=== PATIENT | female | born 1945 | race Caucasian/White ===

== ENCOUNTER 2020-01-22 14:23 | Inpatient (IN) ==
[2020-01-22] MEDS ORDERED: ONDANSETRON 4 MG/2 ML VIAL IV ONE (14:47)
[2020-01-22] MEDS ORDERED: 0.9 % SODIUM CHLORIDE 1,000 ML IV ONE (14:47)
--- NOTE | 2020-01-22 14:53 | Emergency Department Note ---
Weakness HPI General Chief complaint: Weakness Stated complaint: HASN'T BEEN ABLE TO EAT OR DINK OR GET OUT OF BED Time Seen by Provider: 01/22/20 14:41 Source: patient Mode of arrival: ambulatory Limitations: no limitations History of Present Illness HPI Narrative: Narrative: Reports 1 week history of initiation of a cough and a fever. She has been vomiting and had diarrhea. She vomited about 3 times today and may be the same yesterday as well as diarrhea about the same on both days although she cannot remember more than this. reported that she had been a little bit confused. No runny nose or sore throat. She has had a little bit of chest discomfort. She has felt short of breath. Beginning a week ago also did have some runny nose and sore throat. She has had some lower abdominal discomforts. These have been in general, fairly consistent. They have been moderate in severity. She cannot characterize it more than that. She denies dysuria or frequency specifically. She has felt weak and lightheaded. Has some headache present currently. Related Data Home Medications Medication Instructions Recorded Confirmed calcium carbonate 500 mg calcium 500 mg PO BID cap 11/02/17 11/13/19 (1,250 mg) capsule cholecalciferol (vitamin D3) 50 2,000 unit PO QDAY 11/02/17 11/13/19 mcg (2,000 unit) capsule memantine 5 mg tablet 5 mg PO BID 04/08/19 11/13/19 Previous Rx's Medication Instructions Recorded aspirin 81 mg tablet,delayed 81 mg PO QDAY #90 tab 01/05/15 release donepezil 10 mg tablet 10 mg PO QDAY #60 tab 06/01/18 folic acid 1 mg tablet See Rx Instructions .ROUTE 11/12/19 .COMPLEX #30 tab Allergies Allergy/AdvReac Type Severity Reaction Status Date / Time No Known Drug Allergies Allergy Verified 11/13/19 16:03 Review of Systems ROS ROS Narrative: Narrative: No blurry vision or double vision. No urinary frequency or dysuria. No back pain No rashes PFSH Narrative Patient History Narrative: Narrative: Medical/Surgical/Family History All Active Problems (Updated 01/22/20 @ 19:15 by Sloan Woo DO) Diarrhea (Acute) GI bleeding (Acute) Pneumonia due to COVID-19 virus (Acute) Hypoxia (Acute) Dementia (Acute) Chest pain (Acute) Acute anxiety (Acute) TIA (transient ischemic attack) (Acute) Upper respiratory infection (Acute) Osteoporosis (Acute) Elevated glucose (Acute) Microscopic hematuria (Acute) Hypovitaminosis D (Chronic) Hyperlipidemia (Acute) H/O colonoscopy (Chronic 10/29/13) Hyperplastic colon polyp (Chronic 10/29/13) Homocysteinemia (Acute) H/O: hysterectomy (Acute) Arthritis (Chronic) Anxiety (Chronic) S/P arthroscopic surgery of right knee (Chronic) S/P arthroscopic surgery of left knee (Chronic) Hx of appendectomy (Chronic) Pulmonary embolism (Chronic) Diverticulosis (Chronic) Depressive disorder (Chronic) Benign neoplasm of colon (Chronic) Medical History (Updated 01/22/20 @ 19:15 by Sloan Woo DO) Acute anxiety (Acute) Anxiety (Chronic) Arthritis (Chronic) Benign neoplasm of colon (Chronic) Chest pain (Acute) Depressive disorder (Chronic) Diverticulosis (Chronic) Homocysteinemia (Acute) Hyperplastic colon polyp (Chronic 10/29/13) Colonoscopy Pulmonary embolism (Chronic) R. lung TIA (transient ischemic attack) (Acute) Upper respiratory infection (Acute) Surgical History H/O colonoscopy (Chronic 10/29/13) 10/29/13 Scar H/O: hysterectomy (Acute) Hx of appendectomy (Chronic) S/P arthroscopic surgery of left knee (Chronic) S/P arthroscopic surgery of right knee (Chronic) Family History Father, at age 85 Mother, at age 86 Social History Smoking Status: Former smoker Alcohol Intake Frequency: does not drink Substance Use: does not use Exam Narrative Narrative: Narrative: General Limitations: no limitations General appearance: Present alert, in no apparent distress, nontoxic and other (Requiring oxygen. Is on 4 L/min, nasal cannula) Head Head: Present atraumatic and normocephalic Eye Eye: Present normal appearance, PERRL and EOMI ENT ENT: Present normal oropharynx and mucous membranes moist Neck Neck: Present trachea midline; Absent lymphadenopathy and thyromegaly Chest Chest: Present symmetric chest wall rise Respiratory Respiratory: Present normal lung sounds bilaterally; Absent respiratory distress, rales/crackles, wheezes, stridor, accessory muscle use and prolonged expiratory phase Cardiovascular Cardiovascular: Present regular rate and normal rhythm; Absent systolic murmur and diastolic murmur Adbominal Abdominal: Present soft; Absent distention, tenderness, guarding, rebound, rigidity, organomegaly and mass Extremities Extremities: Absent pedal edema, pretibial edema, calf tenderness and cyanosis Back Back: Absent CVA tenderness (R) and CVA tenderness (L) Neurological Neurological: Present alert and other (Seems to be confused at times and not good in her memory over common and regular things. Unable to give some general information.) Psychiatric Psychiatric: Present normal affect, polite and pleasant; Absent depressed, agitated, anxious and poor eye contact Skin Skin: Present warm (WNL) and dry; Absent cyanosis and pallor Course Vital Signs Vital signs: Vital Signs Temperature 99.9 F H 01/22/20 14:24 Pulse Rate 83 01/22/20 14:24 Respiratory Rate 14 01/22/20 14:24 Blood Pressure 157/124 01/22/20 14:24 Pulse Oximetry (%) 89 L 01/22/20 14:24 Temperature 99.7 F H 01/22/20 18:54 Pulse Rate 68 01/22/20 18:54 Respiratory Rate 14 01/22/20 18:54 Blood Pressure 124/83 01/22/20 18:54 Pulse Oximetry (%) 92 01/22/20 18:54 MDM MDM Narrative Medical decision making narrative: Narrative: 2:49 PM - EKG demonstrates left bundle branch block with probable left atrial enlargement although there is enough baseline artifact that makes this di fficult. Rate 80 bpm. 3:00 PM approximately - interviewed and examined. Is requiring oxygen. I t urned her down to 0 and she went down to 79 and 80% sometimes a little higher. With 2 L she was still running 88-90 and so was bumped up to 3 L. When I had gone into the room she was at 4 L. She seemed a little bit confused but overall seem to be a fair historian. 4:00 PM - my review of her chest x-ray demonstrates possible small pneumonia and patchy infiltrate bilateral bases. Suspect Covid giving her above symptoms. Rapid test ordered. She is hypoxic. 4:15 PM - nursing staff reports that patient got up to go to the commode and pulled out all of her lines and monitors except for her Carlos cath which is in place. Also was partially incontinent of stool at least onto her gown etc. S taff will help her to get cleaned up and get her restarted with a new IV. Labs have come back with * normal white count, H&H. * Electrolytes unremarkable. * BUN and creatinine are actually unremarkable at 19 and 1.1. * Liver function tests are unremarkable. * TSH is normal at 1.36. * Still pending is a troponin and procalcitonin. 4:38 PM - spoke with patient's , Wilton Haq, who reports that her symptoms actually began 3 days ago and included decreased appetite, weakness, staying in bed etc. Sometimes she gets a little bit hard to convince to eat or drink. She gets mad easily. She only sat up briefly yesterday and then last night was coughing quite bad. He got up after hurts noises and she had been some in bowels. She was laying on the floor in the dining room. After some difficulty was able to get her up and then back into bed and get her cleaned up. He reports that she has been drinking only about a can of Pepsi daily. She did have a looser bowel yesterday and then today one episode of diarrhea prior to coming. He has not been able to check her temperature because they do not have a thermometer. He has not seen runny nose or sore throat. She has had cough onset about 4 days ago with some congestion. Believes that triggered her living will says DO NOT RESUSCITATE. They [address] in [address] She has not had exposures to Covid that he knows of. She has not been out and about since the sixth and he has no symptoms. He has had limited Leticia in the community as well. 5:12 PM - spoke with hospitalist, Dr. Stu Coyle. He is willing to accept patient if not full code or if stable; or comfort measures primarily only if she worsens. He is willing to take her if she remains stable for an hour and a half additional. 5:17 PM - I spoke again with patient's , Wilton Haq. He reports that they are legally since 2011. He is not found specifically the living will. He thinks that she would want to be intubated. I discussed with him carlos barbosa if she got worse. He is wishing that this be done. 5:25 PM - Will order ABG and monitor for an additional hour and a half, i.e. until approximately 7 PM. Will give dexamethasone 6 and remdesivir 200. 6:20 PM - treat ABG demonstrates mild respiratory alkalosis with a pH of 7.49, PCO2 31, PO2 66, base excess 0.8 and 94% on 3 L. Bicarb is 23.6. 7:03 PM - spoke with Dr. Stu Coyle, hospitalist who will see patient and admit and assume care. Lab Data Result diagrams: 01/22/20 15:01 01/22/20 15:01 Labs: Lab Results 01/22/20 01/22/20 01/22/20 Range/Units 13:01 15: 15:01 WBC 7.8 (4.5-11.0) K/mcL RBC 4.14 (4.00-5.20) M/mcL Hgb 12.5 (12.0-15.0) g/dL Hct 36.7 (36.0-48.0) % MCV 88.6 (80.0-100.0) fL MCH 30.2 (26.0-34.0) pg MCHC 34.1 (31.0-36.0) g/dL RDW 12.6 (11.5-14.5) % Plt Count 290 (140-440) K/mcL MPV 10.0 (7.4-10.4) fL Neut % (Auto) 77.4 (38.0-78.0) % Lymph % (Auto) 16.0 (15.0-49.0) % [place] % (Auto) 4.9 (1.0-12.0) % Eos % (Auto) 1.4 (0.0-7.0) % Baso % (Auto) 0.3 (0.0-2.0) % Lymph # (Auto) 1.25 L (1.50-4.80) K/mcL [place] # (Auto) 0.38 (0.10-0.90) K/mcL Eos # (Auto) 0.11 (0.00-0.70) K/mcL Baso # (Auto) 0.02 (0.00-0.20) K/mcL Absolute Neutrophils 6.05 (1.80-8.00) K/mcL Sodium 136 (133-145) mmol/L Potassium 3.6 (3.3-5.1) mmol/L Chloride 99 (96-108) mmol/L Carbon Dioxide 23 (22-30) mmol/L Anion Gap 14.0 (8.0-16.0) BUN 19 (8-23) mg/dL Creatinine 1.1 (0.6-1.1) mg/dL GFR Calculation 49 Glucose 106 H (70-105) mg/dL Calcium 8.4 L (8.6-10.4) mg/dL Magnesium 2.2 (1.6-2.5) mg/dL Total Bilirubin 0.6 (0.1-1.0) mg/dL AST 33 H (<32) U/L ALT 14 (<40) U/L Alkaline Phosphatase 70 (39-117) U/L Troponin T (<0.03) ng/mL Total Protein 7.3 (5.9-8.4) gm/dL Albumin 3.3 (3.2-5.2) gm/dL Globulin 4.0 H (2.2-3.7) gm/dL Albumin/Globulin Ratio 0.8 L (1.0-2.3) Procalcitonin 1.30 H (<0.10) ng/mL TSH 1.36 (0.27-5.01) uIU/mL Urine Color Urine Appearance (Clear) Urine pH (5.0-9.0) Ur Specific [place] (1.000-1.035) Urine Protein (Negative) mg/dL Urine Glucose (UA) (Negative) mg/dL Urine Ketones (Negative) mg/dL Urine Occult Blood (Negative) mg/dL Urine Nitrate (Negative) Urine Bilirubin (Negative) mg/dL Urine Urobilinogen mg/dL Ur Leukocyte Esterase (Negative) /ug Urine RBC (0-1) /hpf Urine WBC (0-4) /hpf Ur Squamous Epith Cells (0-4) /hpf Urine Bacteria (0) /hpf Hyaline Casts (0-2) /lph Urine Mucus (None) /hpf Ur Culture Indicated? Acetaminophen ug/mL SARS-CoV-2 (PCR) (Negative) 01/22/20 01/22/20 01/22/20 Range/Units 15:01 15:01 16:14 WBC (4.5-11.0) K/mcL RBC (4.00-5.20) M/mcL Hgb (12.0-15.0) g/dL Hct (36.0-48.0) % MCV (80.0-100.0) fL MCH (26.0-34.0) pg MCHC (31.0-36.0) g/dL RDW (11.5-14.5) % Plt Count (140-440) K/mcL MPV (7.4-10.4) fL Neut % (Auto) (38.0-78.0) % Lymph % (Auto) (15.0-49.0) % [place] % (Auto) (1.0-12.0) % Eos % (Auto) (0.0-7.0) % Baso % (Auto) (0.0-2.0) % Lymph # (Auto) (1.50-4.80) K/mcL [place] # (Auto) (0.10-0.90) K/mcL Eos # (Auto) (0.00-0.70) K/mcL Baso # (Auto) (0.00-0.20) K/mcL Absolute Neutrophils (1.80-8.00) K/mcL Sodium (133-145) mmol/L Potassium (3.3-5.1) mmol/L Chloride (96-108) mmol/L Carbon Dioxide (22-30) mmol/L Anion Gap (8.0-16.0) BUN (8-23) mg/dL Creatinine (0.6-1.1) mg/dL GFR Calculation Glucose (70-105) mg/dL Calcium (8.6-10.4) mg/dL Magnesium (1.6-2.5) mg/dL Total Bilirubin (0.1-1.0) mg/dL AST (<32) U/L ALT (<40) U/L Alkaline Phosphatase (39-117) U/L Troponin T < 0.01 (<0.03) ng/mL Total Protein (5.9-8.4) gm/dL Albumin (3.2-5.2) gm/dL Globulin (2.2-3.7) gm/dL Albumin/Globulin Ratio (1.0-2.3) Procalcitonin (<0.10) ng/mL TSH (0.27-5.01) uIU/mL Urine Color Urine Appearance (Clear) Urine pH (5.0-9.0) Ur Specific [place] (1.000-1.035) Urine Protein (Negative) mg/dL Urine Glucose (UA) (Negative) mg/dL Urine Ketones (Negative) mg/dL Urine Occult Blood (Negative) mg/dL Urine Nitrate (Negative) Urine Bilirubin (Negative) mg/dL Urine Urobilinogen mg/dL Ur Leukocyte Esterase (Negative) /ug Urine RBC (0-1) /hpf Urine WBC (0-4) /hpf Ur Squamous Epith Cells (0-4) /hpf Urine Bacteria (0) /hpf Hyaline Casts (0-2) /lph Urine Mucus (None) /hpf Ur Culture Indicated? Acetaminophen < 5.0 ug/mL SARS-CoV-2 (PCR) Positive A (Negative) 01/22/20 Range/Units 16:14 WBC (4.5-11.0) K/mcL RBC (4.00-5.20) M/mcL Hgb (12.0-15.0) g/dL Hct (36.0-48.0) % MCV (80.0-100.0) fL MCH (26.0-34.0) pg MCHC (31.0-36.0) g/dL RDW (11.5-14.5) % Plt Count (140-440) K/mcL MPV (7.4-10.4) fL Neut % (Auto) (38.0-78.0) % Lymph % (Auto) (15.0-49.0) % [place] % (Auto) (1.0-12.0) % Eos % (Auto) (0.0-7.0) % Baso % (Auto) (0.0-2.0) % Lymph # (Auto) (1.50-4.80) K/mcL [place] # (Auto) (0.10-0.90) K/mcL Eos # (Auto) (0.00-0.70) K/mcL Baso # (Auto) (0.00-0.20) K/mcL Absolute Neutrophils (1.80-8.00) K/mcL Sodium (133-145) mmol/L Potassium (3.3-5.1) mmol/L Chloride (96-108) mmol/L Carbon Dioxide (22-30) mmol/L Anion Gap (8.0-16.0) BUN (8-23) mg/dL Creatinine (0.6-1.1) mg/dL GFR Calculation Glucose (70-105) mg/dL Calcium (8.6-10.4) mg/dL Magnesium (1.6-2.5) mg/dL Total Bilirubin (0.1-1.0) mg/dL AST (<32) U/L ALT (<40) U/L Alkaline Phosphatase (39-117) U/L Troponin T (<0.03) ng/mL Total Protein (5.9-8.4) gm/dL Albumin (3.2-5.2) gm/dL Globulin (2.2-3.7) gm/dL Albumin/Globulin Ratio (1.0-2.3) Procalcitonin (<0.10) ng/mL TSH (0.27-5.01) uIU/mL Urine Color Yellow Urine Appearance Hazy A (Clear) Urine pH 6.0 (5.0-9.0) Ur Specific [place] 1.026 (1.000-1.035) Urine Protein 100 A (Negative) mg/dL Urine Glucose (UA) Negative (Negative) mg/dL Urine Ketones Negative (Negative) mg/dL Urine Occult Blood 0.20 (Negative) mg/dL Urine Nitrate Negative (Negative) Urine Bilirubin Negative (Negative) mg/dL Urine Urobilinogen 2.0 A mg/dL Ur Leukocyte Esterase Negative (Negative) /ug Urine RBC 20 H (0-1) /hpf Urine WBC 12 H (0-4) /hpf Ur Squamous Epith Cells < 1 (0-4) /hpf Urine Bacteria None (0) /hpf Hyaline Casts 28 H (0-2) /lph Urine Mucus Many A (None) /hpf Ur Culture Indicated? yes Acetaminophen ug/mL SARS-CoV-2 (PCR) (Negative) Discharge Plan Patient/Caregiver Discharge Instructions Pt seen by SERVICES REP/PA only: No Clinical Impression: Pneumonia due to COVID-19 virus, Hypoxia Patient Disposition: Xfer As Inpt ([facility]) Follow up with: Omer Shepherd MD, FAAFP [Primary Care Provider] - Prescriptions: No Action folic acid 1 mg tablet See Rx Instructions .ROUTE .COMPLEX Qty: 30 RF: 4 aspirin 81 mg tablet,delayed release (DR/EC) 81 mg PO QDAY Qty: 90 RF: 0 calcium carbonate [Calci-Mix] 500 mg calcium (1,250 mg) capsule 500 mg PO BID RF: 0 cholecalciferol (vitamin D3) 2,000 unit capsule 2,000 unit PO QDAY RF: 0 donepezil [Aricept] 10 mg tablet 10 mg PO QDAY Qty: 60 RF: 4 memantine [Namenda] 5 mg tablet 5 mg PO BID RF: 0
[2020-01-22] MEDS ORDERED: ACETAMINOPHEN 325 MG TABLET PO ONE (15:15)
[2020-01-22] MEDS ORDERED: cefTRIAXone 1 GM VIAL IV ONE (15:19)
[2020-01-22] MEDS ORDERED: AZITHROMYCIN 500 MG in DEXTROSE 5% IN WATER 250 ML IV ONE (15:21)
[2020-01-22 15:32] LABS: Basophils # (Auto) 0.02 K/mcL (0.00-0.20); Basophils % (Auto) 0.3 % (0.0-2.0); Eosinophils # (Auto) 0.11 K/mcL (0.00-0.70); Eosinophils % (Auto) 1.4 % (0.0-7.0); Hematocrit 36.7 % (36.0-48.0); Hemoglobin 12.5 g/dL (12.0-15.0); Lymphocytes # (Auto) 1.25 K/mcL (1.50-4.80); Mean Cell Volume 88.6 fL (80.0-100.0); Mean Corpuscular HGB Conc 34.1 g/dL (31.0-36.0); Monocytes # (Auto) 0.38 K/mcL (0.10-0.90); Monocytes % (Auto) 4.9 % (1.0-12.0); Neutrophils % (Auto) 77.4 % (38.0-78.0); Platelet Count 290 K/mcL (140-440); RBC 4.14 M/mcL (4.00-5.20); Red Cell Distribution Width 12.6 % (11.5-14.5); WBC 7.8 K/mcL (4.5-11.0)
[2020-01-22 16:08] LABS: ALT/SGPT 14 U/L (<40); AST/SGOT 33 U/L (<32); Albumin 3.3 gm/dL (3.2-5.2); Albumin/Globulin Ratio 0.8 (1.0-2.3); Alkaline Phosphatase 70 U/L (39-117); Bilirubin,Total 0.6 mg/dL (0.1-1.0); Blood Urea Nitrogen 19 mg/dL (8-23); Calcium 8.4 mg/dL (8.6-10.4); Carbon Dioxide 23 mmol/L (22-30); Chloride 99 mmol/L (96-108); Glomerular Filtration Rate 49; Glucose 106 mg/dL (70-105); Thyroid Stimulating Hormone 1.36 uIU/mL (0.27-5.01)
--- NOTE | 2020-01-22 16:20 | XRay Report ---
CLINICAL INFORMATION: SOB COMPARISON: 03/13/2017 FINDINGS: Mild cardiomegaly is unchanged. Mediastinum and pulmonary vasculature are unremarkable. Moderate right upper lung and left lower lobe infiltrates have developed. Underlying chronic bronchitis appreciated. No effusions IMPRESSION: Moderate right upper and left lower lung infiltrates Interpreted and Authenticated by: Porfirio Argueta 01/22/20
[2020-01-22 16:44] LABS: Appearance,Urine HAZY (Clear); Bilirubin,Urine Negative (Negative); Color,Urine Yellow; Culture Indicated,Urine yes; Glucose,Urine (UA) Negative (Negative); Ketones,Urine Negative (Negative); Leukocyte Esterase,Urine Negative /ug (Negative); Mucus,Urine MANY /hpf; Nitrate,Urine Negative (Negative); Protein,Urine 100 mg/dL (Negative); Specific Gravity,Urine 1.026 (1.000-1.035); Urine Hyaline Cast 28 /lph (0-2); Urine RBC 20 /hpf (0-1); Urine Squamous Epithelial Cell < 1 /hpf (0-4); Urine WBC 12 /hpf (0-4)
[2020-01-22] MEDS ORDERED: DEXAMETHASONE 10 MG/ML VIAL IV ONE (17:26)
[2020-01-22] MEDS ORDERED: REMDESIVIR 200 MG in 0.9 % SODIUM CHLORIDE 250 ML IV ONE (17:26)
--- NOTE | 2020-01-22 19:25 | Internal Med History&Physical ---
HPI History of Present Illness Patient information: Note initiated : 01/22/20 at 7:23 pm Service Date, if different from initiated Date: [] Patient: Christy Atkins a 74 y/o F admitted on for Hasn't Been Able To Eat/Drink/Get Out Of Bed. Chief Complaint: [] History of present illness: Ms. Gianluca Payan is a 74 year old F 74-year-old female presents the ED with generalized weakness decreased appetite nausea vomiting diarrhea cough and fever some mild confusion on top of underlying Alzheimer's patient. History is obtained from the chart and per the chart due to patient's underlying dementia. In the ED she is evaluated found to be hypoxic with a fever. She had elevated procalcitonin and chest x-ray showed bilateral infiltrates. Covid test was positive. Review of Systems: Pertinent positives as above. Denies headache/fever/chills//chest or abdominal pain Remaining 10 point review of system reviewed negative. PFSH PFSH All Active Problems (Updated 01/22/20 @ 19:15 by Sloan Woo DO) Diarrhea (Acute) GI bleeding (Acute) Pneumonia due to COVID-19 virus (Acute) Hypoxia (Acute) Dementia (Acute) Chest pain (Acute) Acute anxiety (Acute) TIA (transient ischemic attack) (Acute) Upper respiratory infection (Acute) Osteoporosis (Acute) Elevated glucose (Acute) Microscopic hematuria (Acute) Hypovitaminosis D (Chronic) Hyperlipidemia (Acute) H/O colonoscopy (Chronic 10/29/13) Hyperplastic colon polyp (Chronic 10/29/13) Homocysteinemia (Acute) H/O: hysterectomy (Acute) Arthritis (Chronic) Anxiety (Chronic) S/P arthroscopic surgery of right knee (Chronic) S/P arthroscopic surgery of left knee (Chronic) Hx of appendectomy (Chronic) Pulmonary embolism (Chronic) Diverticulosis (Chronic) Depressive disorder (Chronic) Benign neoplasm of colon (Chronic) Medical History (Updated 01/22/20 @ 19:15 by Sloan Woo DO) Acute anxiety (Acute) Anxiety (Chronic) Arthritis (Chronic) Benign neoplasm of colon (Chronic) Chest pain (Acute) Depressive disorder (Chronic) Diverticulosis (Chronic) Homocysteinemia (Acute) Hyperplastic colon polyp (Chronic 10/29/13) Colonoscopy Pulmonary embolism (Chronic) R. lung TIA (transient ischemic attack) (Acute) Upper respiratory infection (Acute) Surgical History H/O colonoscopy (Chronic 10/29/13) 10/29/13 Scar H/O: hysterectomy (Acute) Hx of appendectomy (Chronic) S/P arthroscopic surgery of left knee (Chronic) S/P arthroscopic surgery of right knee (Chronic) Family History Mother , at age 86 Alzheimer's disease Father , at age 85 Atherosclerosis of coronary artery Social History marital status: education level: high school occupational status: retired other: Children-1 Grandchildren-2 smoking status: Former smoker quit date: 03/13/99 pack-years: 15 alcohol intake frequency: does not drink substance use type: does not use MEDS/ALLERGIES Home Medications and Allergies Home Medications Medication Instructions Recorded Confirmed Type aspirin 81 mg tablet,delayed 81 mg PO QDAY #90 tab 01/05/15 01/22/20 Rx release donepezil 10 mg tablet 10 mg PO QDAY #60 tab 06/01/18 01/22/20 Rx memantine 5 mg tablet 5 mg PO BID 04/08/19 01/22/20 History folic acid 1 mg tablet See Rx Instructions .ROUTE 11/12/19 01/22/20 Rx .COMPLEX #30 tab Allergies Allergy/AdvReac Type Severity Reaction Status Date / Time No Known Drug Allergies Allergy Verified 11/13/19 16:03 EXAM Constitutional Vitals: Temp Pulse Resp BP Pulse Ox 99.7 F H 68 14 124/83 92 01/22/20 18:54 01/22/20 18:54 01/22/20 18:54 01/22/20 18:54 01/22/20 18:54 Exam: General: Alert, Awake, No acute Distress Eyes/N/T: EOMI, PERRL, dry MM Head/Neck: neck supple, normocephalic atraumatic CV: RRR, No murmurs, normal s1/s2 Pulm: b/l mild rales/rhonchi, no wheezing Abd: soft, nontender, +BS x4 Ext: no clubbing/cyanosis/edema Neuro: Alert, no focal deficits, moves all extremities, CN 2-12 grossly intact, symmetrical strength b/l upper/lower, sensations intact b/l upper/lower Skin: warm/dry DATA Data Completed and Pending Labs: Labs from last 24 hours 01/22/20 01/22/20 01/22/20 16:14 16:14 15:01 WBC RBC Hgb Hct MCV MCH MCHC RDW Plt Count MPV Neut % (Auto) Lymph % (Auto) [place] % (Auto) Eos % (Auto) Baso % (Auto) Lymph # (Auto) [place] # (Auto) Eos # (Auto) Baso # (Auto) Absolute Neutrophils PT INR Sodium Potassium Chloride Carbon Dioxide Anion Gap BUN Creatinine GFR Calculation Glucose Calcium Magnesium Ferritin Total Bilirubin AST ALT Alkaline Phosphatase Total Creatine Kinase Troponin T C-Reactive Protein Total Protein Albumin Globulin Albumin/Globulin Ratio Procalcitonin TSH Urine Color Yellow Urine Appearance Hazy A Urine pH 6.0 Ur Specific [place] 1.026 Urine Protein 100 A Urine Glucose (UA) Negative Urine Ketones Negative Urine Occult Blood 0.20 Urine Nitrate Negative Urine Bilirubin Negative Urine Urobilinogen 2.0 A Ur Leukocyte Esterase Negative Urine RBC 20 H Urine WBC 12 H Ur Squamous Epith Cells < 1 Urine Bacteria None Hyaline Casts 28 H Urine Mucus Many A Ur Culture Indicated? yes Acetaminophen < 5.0 SARS-CoV-2 (PCR) Positive A 01/22/20 01/22/20 01/22/20 15:01 15:01 15:01 WBC 7.8 RBC 4.14 Hgb 12.5 Hct 36.7 MCV 88.6 MCH 30.2 MCHC 34.1 RDW 12.6 Plt Count 290 MPV 10.0 Neut % (Auto) 77.4 Lymph % (Auto) 16.0 [place] % (Auto) 4.9 Eos % (Auto) 1.4 Baso % (Auto) 0.3 Lymph # (Auto) 1.25 L [place] # (Auto) 0.38 Eos # (Auto) 0.11 Baso # (Auto) 0.02 Absolute Neutrophils 6.05 PT INR Sodium 136 Potassium 3.6 Chloride 99 Carbon Dioxide 23 Anion Gap 14.0 BUN 19 Creatinine 1.1 GFR Calculation 49 Glucose 106 H Calcium 8.4 L Magnesium 2.2 Ferritin Total Bilirubin 0.6 AST 33 H ALT 14 Alkaline Phosphatase 70 Total Creatine Kinase Troponin T < 0.01 C-Reactive Protein Total Protein 7.3 Albumin 3.3 Globulin 4.0 H Albumin/Globulin Ratio 0.8 L Procalcitonin TSH 1.36 Urine Color Urine Appearance Urine pH Ur Specific [place] Urine Protein Urine Glucose (UA) Urine Ketones Urine Occult Blood Urine Nitrate Urine Bilirubin Urine Urobilinogen Ur Leukocyte Esterase Urine RBC Urine WBC Ur Squamous Epith Cells Urine Bacteria Hyaline Casts Urine Mucus Ur Culture Indicated? Acetaminophen SARS-CoV-2 (PCR) 01/22/20 01/22/20 01/22/20 13:10 13:10 13:01 WBC RBC Hgb Hct MCV MCH MCHC RDW Plt Count MPV Neut % (Auto) Lymph % (Auto) [place] % (Auto) Eos % (Auto) Baso % (Auto) Lymph # (Auto) [place] # (Auto) Eos # (Auto) Baso # (Auto) Absolute Neutrophils PT Pending INR Pending Sodium Potassium Chloride Carbon Dioxide Anion Gap BUN Creatinine GFR Calculation Glucose Calcium Magnesium Ferritin Pending Total Bilirubin AST ALT Alkaline Phosphatase Total Creatine Kinase Pending Troponin T C-Reactive Protein Pending Total Protein Albumin Globulin Albumin/Globulin Ratio Procalcitonin 1.30 H TSH Urine Color Urine Appearance Urine pH Ur Specific [place] Urine Protein Urine Glucose (UA) Urine Ketones Urine Occult Blood Urine Nitrate Urine Bilirubin Urine Urobilinogen Ur Leukocyte Esterase Urine RBC Urine WBC Ur Squamous Epith Cells Urine Bacteria Hyaline Casts Urine Mucus Ur Culture Indicated? Acetaminophen SARS-CoV-2 (PCR) A/P Narrative A/P Narrative: A: *COVID pneumonia w/likely superimposed bacterial pneumonia: *Acute hypoxic respiratory failure: *Sepsis: 2/2 above *Encephalopathy superimposed on underlying Alzheimer's dementia: *Alzheimer's Dementia: follows with Dr. Waddell P: -Remdesivir/Dexamethasone -Rocephin/Azithro -O2 support -Pulm toilet, prn IHs vs Nebs if needed - -pt/ot -ppx: lovenox Time Spent With Patient Time: Total time spent is greater than 50% in coordination of care (as documented) at patient's floor/unit and/or counseling patient:
[2020-01-22 19:44] LABS: C-Reactive Protein 12.7 mg/dL (0.03-0.80)
[2020-01-22 19:53] LABS: Ferritin 570.4 ng/mL (30.0-400.0)
[2020-01-22] MEDS ORDERED: MAGNESIUM SULFATE 2 GM/50 ML BAG IV PRN (21:06)
[2020-01-22] MEDS ORDERED: POTASSIUM CHLORIDE 40 MEQ in DEXTROSE 5% IN WATER 500 ML IV PRN (21:06)
[2020-01-22] MEDS ORDERED: ONDANSETRON 4 MG/2 ML VIAL IV PRN (21:06)
[2020-01-22] MEDS ORDERED: IPRATROPIUM/ALBUTEROL 3 ML AMPUL.NEB NEB PRN (21:06)
[2020-01-22] MEDS ORDERED: POLYETHYLENE GLYCOL 3350 17 GM PACKET PO PRN (21:06)
[2020-01-22] MEDS ORDERED: POTASSIUM CHLORIDE 20 MEQ TABLET PO PRN (21:06)
[2020-01-22] MEDS ORDERED: SENNOSIDES 1 TABLET PO PRN (21:06)
[2020-01-22] MEDS: DOCUSATE SODIUM 100 MG CAPSULE PO SCH (21:20)
[2020-01-22 21:41] LABS: INR 1.1 (0.9-1.1); Prothrombin Time 14.7 sec (11.9-14.5)
[2020-01-22] MEDS: 0.9 % SODIUM CHLORIDE 10 ML SYRINGE IV SCH (21:51)
[2020-01-23] MEDS: 0.9 % SODIUM CHLORIDE 10 ML SYRINGE IV SCH ×3 (05:53→20:37)
[2020-01-23 07:07] LABS: ALT/SGPT 11 U/L (<40); AST/SGOT 25 U/L (<32); Albumin 2.8 gm/dL (3.2-5.2); Albumin/Globulin Ratio 0.8 (1.0-2.3); Alkaline Phosphatase 60 U/L (39-117); Bilirubin,Direct < 0.2 mg/dL (<0.3); Bilirubin,Total 0.3 mg/dL (0.1-1.0); Blood Urea Nitrogen 18 mg/dL (8-23); Calcium 8.1 mg/dL (8.6-10.4); Carbon Dioxide 24 mmol/L (22-30); Chloride 104 mmol/L (96-108); Globulin 3.6 gm/dL (2.2-3.7); Glomerular Filtration Rate 73; Glucose 135 mg/dL (70-105); Lactate Dehydrogenase 365 U/L (135-225); Phosphorous 3.6 mg/dL (2.5-4.5); Triglycerides 82 mg/dL (<150); Uric Acid 5.8 mg/dL (2.5-8.0)
[2020-01-23 07:14] LABS: Basophils # (Auto) 0.01 K/mcL (0.00-0.20); Basophils % (Auto) 0.2 % (0.0-2.0); Eosinophils # (Auto) 0 K/mcL (0.00-0.70); Eosinophils % (Auto) 0 % (0.0-7.0); Hematocrit 33.8 % (36.0-48.0); Hemoglobin 11.3 g/dL (12.0-15.0); Lymphocytes # (Auto) 0.73 K/mcL (1.50-4.80); Lymphocytes % (Auto) 15.4 % (15.0-49.0); Mean Cell Volume 88.9 fL (80.0-100.0); Mean Corpuscular HGB Conc 33.4 g/dL (31.0-36.0); Mean Platelet Volume 9.7 fL (7.4-10.4); Monocytes # (Auto) 0.15 K/mcL (0.10-0.90); Monocytes % (Auto) 3.2 % (1.0-12.0); Neutrophils % (Auto) 81.2 % (38.0-78.0); Platelet Count 270 K/mcL (140-440); Red Cell Distribution Width 12.6 % (11.5-14.5); WBC 4.7 K/mcL (4.5-11.0)
--- NOTE | 2020-01-23 08:14 | Internal Med Progress Note ---
SUBJECTIVE Subjective Patient information: Note initiated : 01/23/20 at 8:10 am Service Date, if different from initiated Date: [] Patient: Christy Atkins a 74 y/o F admitted on 01/22/20 for Hasn't Been Able To Eat/Drink/Get Out Of Bed. Chief Complaint: [] Interval history: History of present illness: Ms. Gianluca Payan is a 74 year old F 74-year-old female presents the ED with generalized weakness decreased appetite nausea vomiting diarrhea cough and fever some mild confusion on top of underlying Alzheimer's patient. History is obtained from the chart and per the chart due to patient's underlying dementia. In the ED she is evaluated found to be hypoxic with a fever. She had elevated procalcitonin and chest x-ray showed bilateral infiltrates. Covid test was positive. 01/22 Patient on 3 to 5 L oxygen. No overnight event or new complaints. Patient with cough. Minimal shortness of breath per patient. Review of Systems: denies headache/fever/chills/nausea/vomiting/chest or abdominal pain/diarrhea. Otherwise see above. Constitutional Vitals: Vital Signs Temp Pulse Resp BP Pulse Ox 98.2 F 56 L 20 111/61 94 01/23/20 04:00 01/23/20 04:00 01/23/20 04:00 01/23/20 04:00 01/23/20 04:00 Period Temp Pulse Resp BP Sys/Mera Pulse Ox Last 24 Hr 98.2 F-102.0 F 56-84 14-31 103-157/53-138 85-99 Intake and Output 01/22/20 01/23/20 01/23/20 21:59 05:59 13:59 Intake Total 483 Output Total 400 Balance 483 -400 Weight 75.387 kg Intake & Output: Intake & Output 01/22/20 01/23/20 01/23/20 21:59 05:59 13:59 Intake Total 483 Output Total 400 Balance 483 -400 Weight 75.387 kg Intake: IV 483 Zithromax 500 mg In Dextrose 5% 250 in Water 250 ml @ 250 mls/hr IV ONCE ONE Rx#:[id number] Veklury 200 mg In Sodium 233 Chloride 0.9% 250 ml @ 500 mls/ hr IV ONCE ONE Rx#:[id number] Output: Urine Catheter Amount 325 Void Amount 75 Other: Urine Appearance Clear Uretheral (Carlos) Clear Urine Color Dark Yellow Uretheral (Carlos) Dark Yellow Exam: General: Alert, Awake, No acute Distress Eyes/N/T: EOMI, Head/Neck: neck supple, CV: RRR, No murmurs, Pulm: b/l mild rales/rhonchi, occasional wheezing Abd: soft, nontender, +BS x4 Ext: no clubbing/cyanosis/edema Neuro: Alert, no focal deficits, moves all extremities, Skin: warm/dry OBJ DATA Labs CBC & Chem 7: 01/23/20 05:52 01/23/20 05:52 Labs: Abnormal Lab Results 01/23/20 01/23/20 01/23/20 05:52 05:52 05:52 RBC 3.80 L Hgb 11.3 L Hct 33.8 L Neut % (Auto) 81.2 H Lymph # (Auto) 0.73 L PT D-Dimer Potassium 3.1 L Glucose 135 H Calcium 8.1 L Ferritin AST Lactate Dehydrogenase 365 H C-Reactive Protein Albumin 2.8 L Globulin Albumin/Globulin Ratio 0.8 L Procalcitonin 0.82 H Urine Appearance Urine Protein Urine Urobilinogen Urine RBC Urine WBC Hyaline Casts Urine Mucus SARS-CoV-2 (PCR) 01/22/20 01/22/20 01/22/20 21:45 16:14 16:14 RBC Hgb Hct Neut % (Auto) Lymph # (Auto) PT D-Dimer 5.64 H Potassium Glucose Calcium Ferritin AST Lactate Dehydrogenase C-Reactive Protein Albumin Globulin Albumin/Globulin Ratio Procalcitonin Urine Appearance Hazy A Urine Protein 100 A Urine Urobilinogen 2.0 A Urine RBC 20 H Urine WBC 12 H Hyaline Casts 28 H Urine Mucus Many A SARS-CoV-2 (PCR) Positive A 01/22/20 01/22/20 01/22/20 15:01 15:01 13:10 RBC Hgb Hct Neut % (Auto) Lymph # (Auto) 1.25 L PT 14.7 H D-Dimer Potassium Glucose 106 H Calcium 8.4 L Ferritin AST 33 H Lactate Dehydrogenase C-Reactive Protein Albumin Globulin 4.0 H Albumin/Globulin Ratio 0.8 L Procalcitonin Urine Appearance Urine Protein Urine Urobilinogen Urine RBC Urine WBC Hyaline Casts Urine Mucus SARS-CoV-2 (PCR) 01/22/20 01/22/20 13:10 13:01 RBC Hgb Hct Neut % (Auto) Lymph # (Auto) PT D-Dimer Potassium Glucose Calcium Ferritin 570.4 H AST Lactate Dehydrogenase C-Reactive Protein 12.70 H Albumin Globulin Albumin/Globulin Ratio Procalcitonin 1.30 H Urine Appearance Urine Protein Urine Urobilinogen Urine RBC Urine WBC Hyaline Casts Urine Mucus SARS-CoV-2 (PCR) Meds: Medications Acetaminophen (Tylenol) 650 mg PO Q6HP PRN PRN Reason: PAIN/FEVER > 101 Albuterol/Ipratropium (Duoneb) 3 ml NEB Q4HP PRN PRN Reason: Shortness Of Breath Aspirin (Aspirin) 81 mg PO QDAY [facility] Dexamethasone (Decadron) 6 mg PO DAILY [facility] Docusate Sodium (Colace) 100 mg PO BID [facility] Last Admin: 01/22/20 21:20 Dose: Not Given Documented by: Donepezil HCl (Aricept) 10 mg PO QDAY [facility] Enoxaparin Sodium (Lovenox) 40 mg SQ DAILY [facility] Potassium Chloride 40 meq/ (Dextrose) 520 mls @ 130 mls/hr IV UD PRN PRN Reason: Potassium < 3 Magnesium Sulfate (Magnesium Sulfate) 2 gm in 50 mls @ 50 mls/hr IV UD PRN PRN Reason: Magnesium </= 1.6 Ceftriaxone Sodium 2 gm/ (Dextrose) 50 mls @ 100 mls/hr IV Q24H [facility]; Protocol Azithromycin 500 mg/ Dextrose 250 mls @ 250 mls/hr IV Q24H [facility]; Protocol Stop: 01/25/20 10:59 REMDESIVIR 100 mg/ Sodium (Chloride) 250 mls @ 500 mls/hr IV Q24H [facility] Stop: 01/26/20 11:29 Memantine (Namenda) 5 mg PO BID [facility] Ondansetron HCl (Zofran) 4 mg IV Q4HP PRN PRN Reason: Nausea And Vomiting Polyethylene Glycol (Miralax) 17 gm PO DAILYP PRN PRN Reason: Constipation Potassium Chloride (Kdur) 40 meq PO UD PRN PRN Reason: Potssium is 3-3.5 Potassium Chloride (Kdur) 40 meq PO UD PRN PRN Reason: Potassium < 3 Senna (Senokot) 2 tab PO DAILYP PRN PRN Reason: Constipation Sodium Chloride (Saline Flush) 10 ml IV Q8 DIANE Last Admin: 01/23/20 05:53 Dose: 10 ml Documented by: A/P Narrative A/P Narrative: A: *COVID pneumonia w/likely superimposed bacterial pneumonia: -PCT improving *Acute hypoxic respiratory failure: -on 3-5L NC *Sepsis: 2/2 above -afebrile o/n *Encephalopathy superimposed on underlying Alzheimer's dementia: *Alzheimer's Dementia: follows with Dr. Waddell *Hypokalemia: P: -Remdesivir/Dexamethasone -Rocephin/Azithro -O2 support -Pulm toilet, prn IHs vs Nebs if needed - -pt/ot -ppx: lovenox Time Spent With Patient Time: Total time spent is greater than 50% in coordination of care (as documented) at patient's floor/unit and/or counseling patient:
[2020-01-23] MEDS: cefTRIAXone 2 GM in DEXTROSE 5% IN WATER 50 ML IV SCH (08:27)
[2020-01-23] MEDS: ASPIRIN 81 MG TAB.CHEW PO SCH (08:28)
[2020-01-23] MEDS: MEMANTINE 10 MG TABLET PO SCH ×2 (08:28→20:36)
[2020-01-23] MEDS: DOCUSATE SODIUM 100 MG CAPSULE PO SCH ×2 (08:29→20:36)
[2020-01-23] MEDS: DEXAMETHASONE 4 MG TABLET PO SCH (08:29)
[2020-01-23] MEDS: DONEPEZIL 10 MG TABLET PO SCH (08:29)
[2020-01-23] MEDS: ENOXAPARIN 40 MG/0.4 ML SYRINGE SQ SCH (08:30)
[2020-01-23] MEDS: AZITHROMYCIN 500 MG in DEXTROSE 5% IN WATER 250 ML IV SCH (09:00)
[2020-01-23] MEDS ORDERED: IPRATROPIUM/ALBUTEROL SULFATE 1 PUFF INHALER INH ONE ×2 (10:04→10:11)
[2020-01-23] MEDS ORDERED: IPRATROPIUM/ALBUTEROL SULFATE 1 PUFF INHALER INH PRN (10:10)
[2020-01-23] MEDS: REMDESIVIR 100 MG in 0.9 % SODIUM CHLORIDE 250 ML IV SCH (10:48)
[2020-01-23] MEDS: ZINC SULFATE 50 MG CAPSULE PO SCH (10:54)
[2020-01-23] MEDS: ACETAMINOPHEN 325 MG TABLET PO PRN (20:36)
[2020-01-23] MEDS: MELATONIN 3 MG TABLET PO SCH (21:44)
[2020-01-24] MEDS ORDERED: OLANZapine 2.5 MG TABLET PO ONE ×2 (01:18→01:31)
[2020-01-24] MEDS ORDERED: diphenhydrAMINE 50 MG/ML VIAL IV ONE (01:19)
[2020-01-24] MEDS ORDERED: OLANZapine 10 MG VIAL IM ONE (01:19)
[2020-01-24] MEDS ORDERED: diphenhydrAMINE 25 MG CAPSULE PO ONE (01:20)
[2020-01-24] MEDS ORDERED: diphenhydrAMINE 25 MG CAPSULE ONE (01:31)
[2020-01-24] MEDS: 0.9 % SODIUM CHLORIDE 10 ML SYRINGE IV SCH ×3 (06:03→23:14)
--- NOTE | 2020-01-24 07:33 | Internal Med Progress Note ---
SUBJECTIVE Subjective Patient information: Note initiated : 01/24/20 at 7:31 am Service Date, if different from initiated Date: [] Patient: Christy Atkins a 74 y/o F admitted on 01/22/20 for Hasn't Been Able To Eat/Drink/Get Out Of Bed. Chief Complaint: [] Interval history: History of present illness: Ms. Gianluca Payan is a 74 year old F 74-year-old female presents the ED with generalized weakness decreased appetite nausea vomiting diarrhea cough and fever some mild confusion on top of underlying Alzheimer's patient. History is obtained from the chart and per the chart due to patient's underlying dementia. In the ED she is evaluated found to be hypoxic with a fever. She had elevated procalcitonin and chest x-ray showed bilateral infiltrates. Covid test was positive. 01/22 Patient on 3 to 5 L oxygen. No overnight event or new complaints. Patient with cough. Minimal shortness of breath per patient. 01/23 Patient became quite agitated last night and combative. Given Zyprexa Benadryl with little effect. Finally sleeping this morning. Calm and cooperative when I examined her this morning. Review of Systems: denies headache/fever/chills/nausea/vomiting/chest or abdominal pain/diarrhea. Otherwise see above. Constitutional Vitals: Vital Signs Temp Pulse Resp BP Pulse Ox 97.8 F 63 16 115/47 93 01/24/20 03:00 01/24/20 05:55 01/24/20 03:00 01/24/20 03:00 01/24/20 05:55 Period Temp Pulse Resp BP Sys/Mera Pulse Ox Last 24 Hr 97 F-99.0 F 63-81 16-22 108-137/47-68 90-96 Intake and Output 01/23/20 01/24/20 01/24/20 21:59 05:59 13:59 Intake Total 700 50 Output Total 100 225 Balance 600 -175 Weight 77.383 kg Intake & Output: Intake & Output 01/23/20 01/24/20 01/24/20 21:59 05:59 13:59 Intake Total 700 50 Output Total 100 225 Balance 600 -175 Weight 77.383 kg Intake: IV 250 Veklury 100 mg In Sodium 250 Chloride 0.9% 250 ml @ 500 mls/ hr IV Q24H [facility] Rx#:[id number] Oral 450 50 Output: Urine Catheter Amount 100 225 Other: Meal Dinner Percent of Meal Consumed Refused Urine Appearance Clear Clear Urine Color Pale Dark Stella Urine Odor Normal Stool Size Smear Stool Color Green Brown Stool Consistency Liquid Watery Loose # Bowel Movements 1 1 Exam: General: Alert, Awake, No acute Distress Eyes/N/T: EOMI, Head/Neck: neck supple, CV: RRR, No murmurs, Pulm: b/l mild rales/rhonchi, no wheezing today Abd: soft, nontender, +BS x4 Ext: no clubbing/cyanosis/edema Neuro: Alert, no focal deficits, moves all extremities, Skin: warm/dry OBJ DATA Labs CBC & Chem 7: 01/23/20 05:52 01/23/20 05:52 Labs: Abnormal Lab Results 01/23/20 01/23/20 01/23/20 05:52 05:52 05:52 RBC 3.80 L Hgb 11.3 L Hct 33.8 L Neut % (Auto) 81.2 H Lymph # (Auto) 0.73 L PT D-Dimer Potassium 3.1 L Glucose 135 H Calcium 8.1 L Ferritin AST Lactate Dehydrogenase 365 H C-Reactive Protein Albumin 2.8 L Globulin Albumin/Globulin Ratio 0.8 L Procalcitonin 0.82 H Urine Appearance Urine Protein Urine Urobilinogen Urine RBC Urine WBC Hyaline Casts Urine Mucus SARS-CoV-2 (PCR) 01/22/20 01/22/20 01/22/20 21:45 16:14 16:14 RBC Hgb Hct Neut % (Auto) Lymph # (Auto) PT D-Dimer 5.64 H Potassium Glucose Calcium Ferritin AST Lactate Dehydrogenase C-Reactive Protein Albumin Globulin Albumin/Globulin Ratio Procalcitonin Urine Appearance Hazy A Urine Protein 100 A Urine Urobilinogen 2.0 A Urine RBC 20 H Urine WBC 12 H Hyaline Casts 28 H Urine Mucus Many A SARS-CoV-2 (PCR) Positive A 01/22/20 01/22/20 01/22/20 15:01 15:01 13:10 RBC Hgb Hct Neut % (Auto) Lymph # (Auto) 1.25 L PT 14.7 H D-Dimer Potassium Glucose 106 H Calcium 8.4 L Ferritin AST 33 H Lactate Dehydrogenase C-Reactive Protein Albumin Globulin 4.0 H Albumin/Globulin Ratio 0.8 L Procalcitonin Urine Appearance Urine Protein Urine Urobilinogen Urine RBC Urine WBC Hyaline Casts Urine Mucus SARS-CoV-2 (PCR) 01/22/20 01/22/20 13:10 13:01 RBC Hgb Hct Neut % (Auto) Lymph # (Auto) PT D-Dimer Potassium Glucose Calcium Ferritin 570.4 H AST Lactate Dehydrogenase C-Reactive Protein 12.70 H Albumin Globulin Albumin/Globulin Ratio Procalcitonin 1.30 H Urine Appearance Urine Protein Urine Urobilinogen Urine RBC Urine WBC Hyaline Casts Urine Mucus SARS-CoV-2 (PCR) Meds: Medications Acetaminophen (Tylenol) 650 mg PO Q6HP PRN PRN Reason: PAIN/FEVER > 101 Last Admin: 01/23/20 20:36 Dose: 650 mg Documented by: Albuterol/Ipratropium (Duoneb) 3 ml NEB Q4HP PRN PRN Reason: Shortness Of Breath Albuterol/Ipratropium (Combivent) 2 puff INH QIDP PRN PRN Reason: sob Aspirin (Aspirin) 81 mg PO QDAY [facility] Last Admin: 01/23/20 08:28 Dose: 81 mg Documented by: Dexamethasone (Decadron) 6 mg PO DAILY [facility] Last Admin: 01/23/20 08:29 Dose: 6 mg Documented by: Docusate Sodium (Colace) 100 mg PO BID [facility] Last Admin: 01/23/20 20:36 Dose: Not Given Documented by: Donepezil HCl (Aricept) 10 mg PO QDAY [facility] Last Admin: 01/23/20 08:29 Dose: 10 mg Documented by: Enoxaparin Sodium (Lovenox) 40 mg SQ DAILY [facility] Last Admin: 01/23/20 08:30 Dose: 40 mg Documented by: Potassium Chloride 40 meq/ (Dextrose) 520 mls @ 130 mls/hr IV UD PRN PRN Reason: Potassium < 3 Magnesium Sulfate (Magnesium Sulfate) 2 gm in 50 mls @ 50 mls/hr IV UD PRN PRN Reason: Magnesium </= 1.6 Ceftriaxone Sodium 2 gm/ (Dextrose) 50 mls @ 100 mls/hr IV Q24H [facility]; Protocol Last Infusion: 01/23/20 08:59 Dose: Infused Documented by: Azithromycin 500 mg/ Dextrose 250 mls @ 250 mls/hr IV Q24H [facility]; Protocol Stop: 01/25/20 10:59 Last Infusion: 01/23/20 10:00 Dose: Infused Documented by: REMDESIVIR 100 mg/ Sodium (Chloride) 250 mls @ 500 mls/hr IV Q24H [facility] Stop: 01/26/20 11:29 Last Infusion: 01/23/20 21:33 Dose: Infused Documented by: Melatonin (Melatonin 3mg Tablet) 3 mg PO HS [facility] Last Admin: 01/23/20 21:44 Dose: 3 mg Documented by: Memantine (Namenda) 5 mg PO BID [facility] Last Admin: 01/23/20 20:36 Dose: 5 mg Documented by: Ondansetron HCl (Zofran) 4 mg IV Q4HP PRN PRN Reason: Nausea And Vomiting Polyethylene Glycol (Miralax) 17 gm PO DAILYP PRN PRN Reason: Constipation Potassium Chloride (Kdur) 40 meq PO UD PRN PRN Reason: Potssium is 3-3.5 Potassium Chloride (Kdur) 40 meq PO UD PRN PRN Reason: Potassium < 3 Senna (Senokot) 2 tab PO DAILYP PRN PRN Reason: Constipation Sodium Chloride (Saline Flush) 10 ml IV Q8 [facility] Last Admin: 01/24/20 06:03 Dose: Not Given Documented by: Zinc Sulfate (Zinc) 50 mg PO DAILY [facility] Last Admin: 01/23/20 10:54 Dose: 50 mg Documented by: A/P Narrative A/P Narrative: A: *COVID pneumonia w/likely superimposed bacterial pneumonia: -PCT improving *Acute hypoxic respiratory failure: -on 2-3L NC *Sepsis: 2/2 above -afebrile o/n *Encephalopathy superimposed on underlying Alzheimer's dementia: *Alzheimer's Dementia with sundowning: follows with Dr. Waddell -Agitation last night *Hypokalemia: P: -Remdesivir/Dexamethasone -Rocephin/Azithro -O2 support, wean -Pulm toilet, prn IHs vs Nebs if needed -qhs seroquel -pt/ot -ppx: lovenox ?full code Time Spent With Patient Time: Total time spent is greater than 50% in coordination of care (as documented) at patient's floor/unit and/or counseling patient:
[2020-01-24] MEDS: ZINC SULFATE 50 MG CAPSULE PO SCH (08:39)
[2020-01-24] MEDS: DEXAMETHASONE 4 MG TABLET PO SCH (08:39)
[2020-01-24] MEDS: DONEPEZIL 10 MG TABLET PO SCH (08:39)
[2020-01-24] MEDS: ASPIRIN 81 MG TAB.CHEW PO SCH (08:39)
[2020-01-24] MEDS: MEMANTINE 10 MG TABLET PO SCH ×2 (08:39→23:14)
[2020-01-24] MEDS: DOCUSATE SODIUM 100 MG CAPSULE PO SCH ×2 (08:40→23:13)
[2020-01-24] MEDS: ENOXAPARIN 40 MG/0.4 ML SYRINGE SQ SCH (08:47)
[2020-01-24] MEDS: cefTRIAXone 2 GM in DEXTROSE 5% IN WATER 50 ML IV SCH (08:50)
[2020-01-24] MEDS: AZITHROMYCIN 500 MG in DEXTROSE 5% IN WATER 250 ML IV SCH (09:50)
[2020-01-24 11:15] LABS: ALT/SGPT 10 U/L (<40); AST/SGOT 22 U/L (<32); Albumin 2.9 gm/dL (3.2-5.2); Albumin/Globulin Ratio 0.9 (1.0-2.3); Alkaline Phosphatase 66 U/L (39-117); Bilirubin,Direct < 0.2 mg/dL (<0.3); Bilirubin,Total 0.3 mg/dL (0.1-1.0); Blood Urea Nitrogen 23 mg/dL (8-23); Calcium 8.3 mg/dL (8.6-10.4); Carbon Dioxide 24 mmol/L (22-30); Chloride 103 mmol/L (96-108); Globulin 3.3 gm/dL (2.2-3.7); Glomerular Filtration Rate 85; Glucose 131 mg/dL (70-105); Lactate Dehydrogenase 380 U/L (135-225); Phosphorous 3.5 mg/dL (2.5-4.5); Triglycerides 66 mg/dL (<150)
[2020-01-24] MEDS: REMDESIVIR 100 MG in 0.9 % SODIUM CHLORIDE 250 ML IV SCH (11:46)
[2020-01-24] MEDS: POTASSIUM CHLORIDE 20 MEQ TABLET PO PRN ×2 (12:57→17:41)
[2020-01-24] MEDS: MELATONIN 3 MG TABLET PO SCH (23:13)
[2020-01-24] MEDS: QUEtiapine 25 MG TABLET PO SCH (23:14)
[2020-01-25] MEDS: 0.9 % SODIUM CHLORIDE 10 ML SYRINGE IV SCH ×3 (02:30→21:32)
[2020-01-25 07:16] LABS: Blood Urea Nitrogen 23 mg/dL (8-23); Calcium 8.1 mg/dL (8.6-10.4); Carbon Dioxide 24 mmol/L (22-30); Chloride 108 mmol/L (96-108); Glomerular Filtration Rate 90; Glucose 121 mg/dL (70-105)
[2020-01-25] MEDS: cefTRIAXone 2 GM in DEXTROSE 5% IN WATER 50 ML IV SCH (09:21)
[2020-01-25] MEDS: ENOXAPARIN 40 MG/0.4 ML SYRINGE SQ SCH (09:22)
[2020-01-25] MEDS: DONEPEZIL 10 MG TABLET PO SCH (09:23)
[2020-01-25] MEDS: DEXAMETHASONE 4 MG TABLET PO SCH (09:24)
[2020-01-25] MEDS: MEMANTINE 10 MG TABLET PO SCH ×3 (09:24→21:31)
[2020-01-25] MEDS: DOCUSATE SODIUM 100 MG CAPSULE PO SCH ×3 (09:24→20:50)
[2020-01-25] MEDS: ZINC SULFATE 50 MG CAPSULE PO SCH (09:24)
[2020-01-25] MEDS: ASPIRIN 81 MG TAB.CHEW PO SCH (09:24)
[2020-01-25] MEDS: POTASSIUM CHLORIDE 20 MEQ TABLET PO PRN (09:25)
[2020-01-25] MEDS: AZITHROMYCIN 500 MG in DEXTROSE 5% IN WATER 250 ML IV SCH (09:55)
[2020-01-25] MEDS: ACETAMINOPHEN 325 MG TABLET PO PRN ×2 (10:23→16:28)
--- NOTE | 2020-01-25 10:44 | Internal Med Progress Note ---
SUBJECTIVE Subjective Patient information: Note initiated : 01/25/20 at 10:40 am Service Date, if different from initiated Date: [] Patient: Christy Atkins a 74 y/o F admitted on 01/22/20 for Hasn't Been Able To Eat/Drink/Get Out Of Bed. Chief Complaint: History of present illness: Ms. Gianluca Payan is a 74 year old F 74-year-old female presents the ED with generalized weakness decreased appetite nausea vomiting diarrhea cough and fever some mild confusion on top of underlying Alzheimer's patient. History is obtained from the chart and per the chart due to patient's underlying dementia. In the ED she is evaluated found to be hypoxic with a fever. She had elevated procalcitonin and chest x-ray showed bilateral infiltrates. Covid test was positive. 01/22 Patient on 3 to 5 L oxygen. No overnight event or new complaints. Patient with cough. Minimal shortness of breath per patient. 01/23 Patient became quite agitated last night and combative. Given Zyprexa Benadryl with little effect. Finally sleeping this morning. Calm and cooperative when I examined her this morning. 01/24 patient doing well-currently on 4 L oxygen. Continue empiric antibiotic coverage/dexamethasone/remdesivir. White count 4.7. D-dimer 3.94. Continue close monitoring/ Constitutional Vitals: Vital Signs Temp Pulse Resp BP Pulse Ox 97.3 F 51 L 20 92/47 92 01/25/20 08:00 01/25/20 08:00 01/25/20 08:00 01/25/20 08:00 01/25/20 08:00 Period Temp Pulse Resp BP Sys/Mera Pulse Ox Last 24 Hr 96.7 F-97.7 F 45-61 16-20 91-107/42-49 76-93 Intake and Output 01/24/20 01/25/20 01/25/20 21:59 05:59 13:59 Intake Total 50 50 Output Total 700 250 Balance -700 -200 50 alert oriented Nonlabored breathing on 4 L oxygen No anxiety Intake & Output: Intake & Output 01/24/20 01/25/20 01/25/20 21:59 05:59 13:59 Intake Total 50 50 Output Total 700 250 Balance -700 -200 50 Intake: IV 50 Rocephin 2 gm In Dextrose 5% in 50 Water 50 ml @ 100 mls/hr IV Q24H [facility] Rx#:[id number] Oral 50 Output: Urine Catheter Amount 700 250 Other: Urine Appearance Clear Urine Color Dark Yellow Dark Yellow Uretheral (Carlos) Dark Yellow Urine Odor Strong OBJ DATA Labs CBC & Chem 7: 01/23/20 05:52 01/25/20 05:06 Labs: Abnormal Lab Results 01/25/20 01/24/20 01/24/20 05:06 09:15 09:15 RBC Hgb Hct Neut % (Auto) Lymph # (Auto) PT D-Dimer 3.94 H Potassium Glucose 121 H Calcium 8.1 L Ferritin 896.0 H AST Lactate Dehydrogenase C-Reactive Protein Albumin Globulin Albumin/Globulin Ratio Procalcitonin Urine Appearance Urine Protein Urine Urobilinogen Urine RBC Urine WBC Hyaline Casts Urine Mucus SARS-CoV-2 (PCR) 01/24/20 01/24/20 01/23/20 09:15 09:15 05:52 RBC Hgb Hct Neut % (Auto) Lymph # (Auto) PT D-Dimer Potassium 3.1 L Glucose 131 H Calcium 8.3 L Ferritin AST Lactate Dehydrogenase 380 H C-Reactive Protein 5.00 H Albumin 2.9 L Globulin Albumin/Globulin Ratio 0.9 L Procalcitonin 0.82 H Urine Appearance Urine Protein Urine Urobilinogen Urine RBC Urine WBC Hyaline Casts Urine Mucus SARS-CoV-2 (PCR) 01/23/20 01/23/20 01/22/20 05:52 05:52 21:45 RBC 3.80 L Hgb 11.3 L Hct 33.8 L Neut % (Auto) 81.2 H Lymph # (Auto) 0.73 L PT D-Dimer 5.64 H Potassium 3.1 L Glucose 135 H Calcium 8.1 L Ferritin AST Lactate Dehydrogenase 365 H C-Reactive Protein Albumin 2.8 L Globulin Albumin/Globulin Ratio 0.8 L Procalcitonin Urine Appearance Urine Protein Urine Urobilinogen Urine RBC Urine WBC Hyaline Casts Urine Mucus SARS-CoV-2 (PCR) 01/22/20 01/22/20 01/22/20 16:14 16:14 15:01 RBC Hgb Hct Neut % (Auto) Lymph # (Auto) PT D-Dimer Potassium Glucose 106 H Calcium 8.4 L Ferritin AST 33 H Lactate Dehydrogenase C-Reactive Protein Albumin Globulin 4.0 H Albumin/Globulin Ratio 0.8 L Procalcitonin Urine Appearance Hazy A Urine Protein 100 A Urine Urobilinogen 2.0 A Urine RBC 20 H Urine WBC 12 H Hyaline Casts 28 H Urine Mucus Many A SARS-CoV-2 (PCR) Positive A 01/22/20 01/22/20 01/22/20 15:01 13:10 13:10 RBC Hgb Hct Neut % (Auto) Lymph # (Auto) 1.25 L PT 14.7 H D-Dimer Potassium Glucose Calcium Ferritin 570.4 H AST Lactate Dehydrogenase C-Reactive Protein 12.70 H Albumin Globulin Albumin/Globulin Ratio Procalcitonin Urine Appearance Urine Protein Urine Urobilinogen Urine RBC Urine WBC Hyaline Casts Urine Mucus SARS-CoV-2 (PCR) 01/22/20 13:01 RBC Hgb Hct Neut % (Auto) Lymph # (Auto) PT D-Dimer Potassium Glucose Calcium Ferritin AST Lactate Dehydrogenase C-Reactive Protein Albumin Globulin Albumin/Globulin Ratio Procalcitonin 1.30 H Urine Appearance Urine Protein Urine Urobilinogen Urine RBC Urine WBC Hyaline Casts Urine Mucus SARS-CoV-2 (PCR) Meds: Medications Acetaminophen (Tylenol) 650 mg PO Q6HP PRN PRN Reason: PAIN/FEVER > 101 Last Admin: 01/25/20 10:23 Dose: 650 mg Documented by: Albuterol/Ipratropium (Duoneb) 3 ml NEB Q4HP PRN PRN Reason: Shortness Of Breath Albuterol/Ipratropium (Combivent) 2 puff INH QIDP PRN PRN Reason: sob Aspirin (Aspirin) 81 mg PO QDAY [facility] Last Admin: 01/25/20 09:24 Dose: 81 mg Documented by: Dexamethasone (Decadron) 6 mg PO DAILY [facility] Last Admin: 01/25/20 09:24 Dose: 6 mg Documented by: Docusate Sodium (Colace) 100 mg PO BID [facility] Last Admin: 01/25/20 09:55 Dose: Not Given Documented by: Donepezil HCl (Aricept) 10 mg PO QDAY [facility] Last Admin: 01/25/20 09:23 Dose: 10 mg Documented by: Enoxaparin Sodium (Lovenox) 40 mg SQ DAILY [facility] Last Admin: 01/25/20 09:22 Dose: 40 mg Documented by: Potassium Chloride 40 meq/ (Dextrose) 520 mls @ 130 mls/hr IV UD PRN PRN Reason: Potassium < 3 Magnesium Sulfate (Magnesium Sulfate) 2 gm in 50 mls @ 50 mls/hr IV UD PRN PRN Reason: Magnesium </= 1.6 Ceftriaxone Sodium 2 gm/ (Dextrose) 50 mls @ 100 mls/hr IV Q24H [facility]; Protocol Last Infusion: 01/25/20 09:51 Dose: Infused Documented by: Azithromycin 500 mg/ Dextrose 250 mls @ 250 mls/hr IV Q24H [facility]; Protocol Stop: 01/25/20 10:59 Last Admin: 01/25/20 09:55 Dose: 250 mls/hr Documented by: REMDESIVIR 100 mg/ Sodium (Chloride) 250 mls @ 500 mls/hr IV Q24H [facility] Stop: 01/26/20 11:29 Last Infusion: 01/24/20 13:00 Dose: Infused Documented by: Melatonin (Melatonin 3mg Tablet) 3 mg PO HS [facility] Last Admin: 01/24/20 23:13 Dose: Not Given Documented by: Memantine (Namenda) 5 mg PO BID [facility] Last Admin: 01/25/20 09:24 Dose: 5 mg Documented by: Ondansetron HCl (Zofran) 4 mg IV Q4HP PRN PRN Reason: Nausea And Vomiting Polyethylene Glycol (Miralax) 17 gm PO DAILYP PRN PRN Reason: Constipation Potassium Chloride (Kdur) 40 meq PO UD PRN PRN Reason: Potssium is 3-3.5 Last Admin: 01/25/20 09:25 Dose: 40 meq Documented by: Potassium Chloride (Kdur) 40 meq PO UD PRN PRN Reason: Potassium < 3 Quetiapine Fumarate (Seroquel) 25 mg PO HS [facility] Last Admin: 01/24/20 23:14 Dose: Not Given Documented by: Senna (Senokot) 2 tab PO DAILYP PRN PRN Reason: Constipation Sodium Chloride (Saline Flush) 10 ml IV Q8 [facility] Last Admin: 01/25/20 02:30 Dose: 10 ml Documented by: Zinc Sulfate (Zinc) 50 mg PO DAILY [facility] Last Admin: 01/25/20 09:24 Dose: 50 mg Documented by: A/P Narrative A/P Narrative: A: *COVID pneumonia w/likely superimposed bacterial pneumonia: On for his oxygen. Continue empiric treatment *Acute hypoxic respiratory failure: On for his oxygen. *Sepsis: 2/2 above-clinically improving *Encephalopathy superimposed on underlying Alzheimer's dementia: At baseline *Alzheimer's Dementia with sundowning: follows with Dr. Waddell -Agitation last night *Hypokalemia: Improving with replacement Plan: -Remdesivir/Dexamethasone -Rocephin/Azithro Potassium replacement -O2 support, wean as tolerated -Pulm toilet, prn IHs vs Nebs if needed -qhs seroquel -pt/ot -ppx: lovenox Time Spent With Patient Time: Total time spent is greater than 50% in coordination of care (as documented) at patient's floor/unit and/or counseling patient:
--- NOTE | 2020-01-25 13:24 | XRay Report ---
CLINICAL INFORMATION: SOB COMPARISON: 01/22/2020 FINDINGS: Mild cardiomegaly is unchanged. Mediastinum and pulmonary vessels are normal. Moderate mixed interstitial/alveolar infiltrate in the right upper lobe as progressed slightly. Moderate patchy infiltrate in the left lower lobe and lingula has improved. No definite effusion IMPRESSION: Moderate right upper lobe infiltrate - slight worsening. Moderate patchy lingular left lower lobe infiltrate improving Interpreted and Authenticated by: Porfirio Argueta 01/25/20
[2020-01-25] MEDS: REMDESIVIR 100 MG in 0.9 % SODIUM CHLORIDE 250 ML IV SCH (15:06)
[2020-01-25] MEDS: MELATONIN 3 MG TABLET PO SCH ×2 (18:43→20:52)
[2020-01-25] MEDS: QUEtiapine 25 MG TABLET PO SCH ×2 (18:43→21:31)
[2020-01-26] MEDS: 0.9 % SODIUM CHLORIDE 10 ML SYRINGE IV SCH ×3 (05:28→20:36)
[2020-01-26 08:02] LABS: Basophils # (Auto) 0.01 K/mcL (0.00-0.20); Basophils % (Auto) 0.1 % (0.0-2.0); Eosinophils # (Auto) 0 K/mcL (0.00-0.70); Eosinophils % (Auto) 0 % (0.0-7.0); Hematocrit 37.8 % (36.0-48.0); Hemoglobin 12.2 g/dL (12.0-15.0); Lymphocytes # (Auto) 1.14 K/mcL (1.50-4.80); Lymphocytes % (Auto) 13.1 % (15.0-49.0); Mean Cell Volume 92.2 fL (80.0-100.0); Mean Corpuscular HGB Conc 32.3 g/dL (31.0-36.0); Mean Platelet Volume 9.8 fL (7.4-10.4); Monocytes % (Auto) 5.8 % (1.0-12.0); Platelet Count 359 K/mcL (140-440); Red Cell Distribution Width 13.2 % (11.5-14.5); WBC 8.7 K/mcL (4.5-11.0)
[2020-01-26 08:26] LABS: ALT/SGPT 20 U/L (<40); AST/SGOT 49 U/L (<32); Albumin 2.7 gm/dL (3.2-5.2); Albumin/Globulin Ratio 0.8 (1.0-2.3); Alkaline Phosphatase 65 U/L (39-117); Bilirubin,Direct < 0.2 mg/dL (<0.3); Bilirubin,Total 0.4 mg/dL (0.1-1.0); Blood Urea Nitrogen 20 mg/dL (8-23); Carbon Dioxide 21 mmol/L (22-30); Chloride 109 mmol/L (96-108); Globulin 3.2 gm/dL (2.2-3.7); Glomerular Filtration Rate 90; Glucose 118 mg/dL (70-105); Lactate Dehydrogenase 422 U/L (135-225); Phosphorous 2.6 mg/dL (2.5-4.5); Triglycerides 72 mg/dL (<150); Uric Acid 4.6 mg/dL (2.5-8.0)
--- NOTE | 2020-01-26 08:26 | XRay Report ---
CLINICAL INFORMATION: Follow-up pneumonia COMPARISON: 01/25/2020 FINDINGS: Moderate right upper lung infiltrate shows slight improved aeration. Moderate patchy infiltrate in the left mid and lower lung show slight progression. Minor atelectasis right base as before. Mild cardiomegaly stable. Mediastinum and pulmonary vessels are normal. IMPRESSION: Slight improvement in moderate right upper lung infiltrate. Slight progression in moderate left mid and lower lung infiltrate. Interpreted and Authenticated by: Porfirio Argueta 01/26/20
[2020-01-26] MEDS: cefTRIAXone 2 GM in DEXTROSE 5% IN WATER 50 ML IV SCH (09:07)
[2020-01-26] MEDS: DEXAMETHASONE 4 MG TABLET PO SCH (09:10)
[2020-01-26] MEDS: ASPIRIN 81 MG TAB.CHEW PO SCH (09:11)
[2020-01-26] MEDS: DONEPEZIL 10 MG TABLET PO SCH (09:11)
[2020-01-26] MEDS: MEMANTINE 10 MG TABLET PO SCH ×2 (09:11→20:21)
[2020-01-26] MEDS: ZINC SULFATE 50 MG CAPSULE PO SCH (09:11)
[2020-01-26] MEDS: DOCUSATE SODIUM 100 MG CAPSULE PO SCH ×2 (09:11→20:21)
[2020-01-26] MEDS: ENOXAPARIN 40 MG/0.4 ML SYRINGE SQ SCH (09:13)
[2020-01-26] MEDS: ACETAMINOPHEN 325 MG TABLET PO PRN ×2 (09:30→20:18)
--- NOTE | 2020-01-26 10:18 | Internal Med Progress Note ---
SUBJECTIVE Subjective Patient information: Note initiated : 01/26/20 at 10:13 am Service Date, if different from initiated Date: [] Patient: Christy Atkins a 74 y/o F admitted on 01/22/20 for Hasn't Been Able To Eat/Drink/Get Out Of Bed. Chief Complaint: Interval history: History of present illness: Ms. Gianluca Payan is a 74 year old F 74-year-old female presents the ED with generalized weakness decreased appetite nausea vomiting diarrhea cough and fever some mild confusion on top of underlying Alzheimer's patient. History is obtained from the chart and per the chart due to patient's underlying dementia. In the ED she is evaluated found to be hypoxic with a fever. She had elevated procalcitonin and chest x-ray showed bilateral infiltrates. Covid test was positive. 01/22 Patient on 3 to 5 L oxygen. No overnight event or new complaints. Patient with cough. Minimal shortness of breath per patient. 01/23 Patient became quite agitated last night and combative. Given Zyprexa Benadryl with little effect. Finally sleeping this morning. Calm and cooperative when I examined her this morning. 01/24 patient doing well-currently on 4 L oxygen. Continue empiric antibiotic coverage/dexamethasone/remdesivir. White count 4.7. D-dimer 3.94. Continue close monitoring/ 01/25-patient doing well. On day 4 remdesivir/dexamethasone. Wanting to go home. No overnight events.White count 8.7, CRP 5, procalcitonin negative. De- escalate antibiotics Constitutional Vitals: Vital Signs Temp Pulse Resp BP Pulse Ox 97.8 F 83 20 95/48 92 01/26/20 08:00 01/26/20 08:00 01/26/20 08:00 01/26/20 08:00 01/26/20 08:00 Period Temp Pulse Resp BP Sys/Mera Pulse Ox Last 24 Hr 97.1 F-98 F 51-83 16-20 95-124/40-66 91-96 Intake and Output 01/25/20 01/26/20 01/26/20 21:59 05:59 13:59 Intake Total 530 400 Output Total 300 Balance 230 400 Weight 73.028 kg Alert Nonlabored breathing on 2 L oxygen Minimal anxiety No lymphedema Intake & Output: Intake & Output 01/25/20 01/26/20 01/26/20 21:59 05:59 13:59 Intake Total 530 400 Output Total 300 Balance 230 400 Weight 73.028 kg Intake: IV 250 Veklury 100 mg In Sodium 250 Chloride 0.9% 250 ml @ 500 mls/ hr IV Q24H [facility] Rx#:[id number] Oral 280 400 Output: Void Amount 300 Other: Meal Lunch Percent of Meal Consumed Refused Urine Appearance Clear Clear Urine Color Dark Yellow Dark Yellow Stool Size Small Stool Color Brown Stool Consistency Watery Loose # Bowel Movements 2 OBJ DATA Labs CBC & Chem 7: 01/26/20 07:11 01/26/20 07:11 Labs: Abnormal Lab Results 01/26/20 01/26/20 01/26/20 08:36 07:11 07:11 Neut % (Auto) 81.0 H Lymph % (Auto) 13.1 L Lymph # (Auto) 1.14 L D-Dimer 3.38 H Potassium Chloride 109 H Carbon Dioxide 21 L Glucose 118 H Calcium 8.0 L Ferritin AST 49 H Lactate Dehydrogenase 422 H C-Reactive Protein Albumin 2.7 L Albumin/Globulin Ratio 0.8 L Procalcitonin 01/26/20 01/25/20 01/24/20 07:11 05:06 09:15 Neut % (Auto) Lymph % (Auto) Lymph # (Auto) D-Dimer Potassium Chloride Carbon Dioxide Glucose 121 H Calcium 8.1 L Ferritin 896.0 H AST Lactate Dehydrogenase C-Reactive Protein Albumin Albumin/Globulin Ratio Procalcitonin 0.15 H 01/24/20 01/24/20 01/24/20 09:15 09:15 09:15 Neut % (Auto) Lymph % (Auto) Lymph # (Auto) D-Dimer 3.94 H Potassium 3.1 L Chloride Carbon Dioxide Glucose 131 H Calcium 8.3 L Ferritin AST Lactate Dehydrogenase 380 H C-Reactive Protein 5.00 H Albumin 2.9 L Albumin/Globulin Ratio 0.9 L Procalcitonin Meds: Medications Acetaminophen (Tylenol) 650 mg PO Q6HP PRN PRN Reason: PAIN/FEVER > 101 Last Admin: 01/26/20 09:30 Dose: 650 mg Documented by: Albuterol/Ipratropium (Duoneb) 3 ml NEB Q4HP PRN PRN Reason: Shortness Of Breath Albuterol/Ipratropium (Combivent) 2 puff INH QIDP PRN PRN Reason: sob Aspirin (Aspirin) 81 mg PO QDAY [facility] Last Admin: 01/26/20 09:11 Dose: 81 mg Documented by: Dexamethasone (Decadron) 6 mg PO DAILY [facility] Last Admin: 01/26/20 09:10 Dose: 6 mg Documented by: Docusate Sodium (Colace) 100 mg PO BID [facility] Last Admin: 01/26/20 09:11 Dose: Not Given Documented by: Donepezil HCl (Aricept) 10 mg PO QDAY [facility] Last Admin: 01/26/20 09:11 Dose: 10 mg Documented by: Enoxaparin Sodium (Lovenox) 40 mg SQ DAILY [facility] Last Admin: 01/26/20 09:13 Dose: 40 mg Documented by: Potassium Chloride 40 meq/ (Dextrose) 520 mls @ 130 mls/hr IV UD PRN PRN Reason: Potassium < 3 Magnesium Sulfate (Magnesium Sulfate) 2 gm in 50 mls @ 50 mls/hr IV UD PRN PRN Reason: Magnesium </= 1.6 Ceftriaxone Sodium 2 gm/ (Dextrose) 50 mls @ 100 mls/hr IV Q24H [facility]; Protocol Last Admin: 01/26/20 09:07 Dose: 100 mls/hr Documented by: REMDESIVIR 100 mg/ Sodium (Chloride) 250 mls @ 500 mls/hr IV Q24H [facility] Stop: 01/26/20 11:29 Last Infusion: 01/25/20 15:40 Dose: Infused Documented by: Melatonin (Melatonin 3mg Tablet) 3 mg PO HS [facility] Last Admin: 01/25/20 20:52 Dose: Not Given Documented by: Memantine (Namenda) 5 mg PO BID [facility] Last Admin: 01/26/20 09:11 Dose: 5 mg Documented by: Ondansetron HCl (Zofran) 4 mg IV Q4HP PRN PRN Reason: Nausea And Vomiting Polyethylene Glycol (Miralax) 17 gm PO DAILYP PRN PRN Reason: Constipation Potassium Chloride (Kdur) 40 meq PO UD PRN PRN Reason: Potssium is 3-3.5 Last Admin: 01/25/20 09:25 Dose: 40 meq Documented by: Potassium Chloride (Kdur) 40 meq PO UD PRN PRN Reason: Potassium < 3 Quetiapine Fumarate (Seroquel) 25 mg PO HS [facility] Last Admin: 01/25/20 21:31 Dose: Not Given Documented by: Senna (Senokot) 2 tab PO DAILYP PRN PRN Reason: Constipation Sodium Chloride (Saline Flush) 10 ml IV Q8 [facility] Last Admin: 01/26/20 05:28 Dose: Not Given Documented by: Zinc Sulfate (Zinc) 50 mg PO DAILY [facility] Last Admin: 01/26/20 09:11 Dose: 50 mg Documented by: A/P Narrative A/P Narrative: * *COVID pneumonia w/likely superimposed bacterial pneumonia: Weaning oxygen as tolerated. 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 At baseline, follows with Dr. Nadira todd last night * *Hypokalemia: Resolved with replacement Plan: -Remdesivir/Dexamethasone day 4 -Discontinue Rocephin/ azithromycin -O2 support, wean as tolerated -qhs seroquel -pt/ot -ppx: lovenox Time Spent With Patient Time: Total time spent is greater than 50% in coordination of care (as documented) at patient's floor/unit and/or counseling patient:
[2020-01-26 12:05] LABS: Appearance,Urine CLEAR (Clear); Bilirubin,Urine Negative (Negative); Color,Urine YELLOW; Culture Indicated,Urine No; Glucose,Urine (UA) Negative (Negative); Ketones,Urine Negative (Negative); Leukocyte Esterase,Urine Negative /ug (Negative); Mucus,Urine FEW /hpf; Nitrate,Urine Negative (Negative); Protein,Urine 30 mg/dL (Negative); Specific Gravity,Urine 1.024 (1.000-1.035); Urine RBC 19 /hpf (0-1); Urine Squamous Epithelial Cell 8 /hpf (0-4); Urine Transitional Epi Cells < 1 /hpf (0-2); Urine WBC 7 /hpf (0-4); Urobilinogen,Urine Negative
[2020-01-26] MEDS: REMDESIVIR 100 MG in 0.9 % SODIUM CHLORIDE 250 ML IV SCH (12:58)
[2020-01-26] MEDS: MELATONIN 3 MG TABLET PO SCH (20:19)
[2020-01-26] MEDS: QUEtiapine 25 MG TABLET PO SCH (20:21)
[2020-01-27] MEDS: ASPIRIN 81 MG TAB.CHEW PO SCH (08:29)
[2020-01-27] MEDS: MEMANTINE 10 MG TABLET PO SCH ×2 (08:29→20:12)
[2020-01-27] MEDS: DONEPEZIL 10 MG TABLET PO SCH (08:29)
[2020-01-27] MEDS: ENOXAPARIN 40 MG/0.4 ML SYRINGE SQ SCH (08:30)
[2020-01-27] MEDS: ZINC SULFATE 50 MG CAPSULE PO SCH (08:30)
[2020-01-27] MEDS: DEXAMETHASONE 4 MG TABLET PO SCH (08:30)
[2020-01-27] MEDS: DOCUSATE SODIUM 100 MG CAPSULE PO SCH ×2 (08:31→19:58)
[2020-01-27 08:32] LABS: Basophils # (Auto) 0.02 K/mcL (0.00-0.20); Basophils % (Auto) 0.2 % (0.0-2.0); Eosinophils # (Auto) 0 K/mcL (0.00-0.70); Eosinophils % (Auto) 0 % (0.0-7.0); Hematocrit 34.6 % (36.0-48.0); Hemoglobin 11.8 g/dL (12.0-15.0); Lymphocytes % (Auto) 13.6 % (15.0-49.0); Mean Cell Volume 87.4 fL (80.0-100.0); Mean Corpuscular HGB Conc 34.1 g/dL (31.0-36.0); Mean Platelet Volume 9.9 fL (7.4-10.4); Monocytes # (Auto) 0.47 K/mcL (0.10-0.90); Monocytes % (Auto) 4.9 % (1.0-12.0); Neutrophils % (Auto) 81.3 % (38.0-78.0); Platelet Count 417 K/mcL (140-440); RBC 3.96 M/mcL (4.00-5.20); WBC 9.5 K/mcL (4.5-11.0)
[2020-01-27 09:11] LABS: ALT/SGPT 17 U/L (<40); AST/SGOT 24 U/L (<32); Albumin 2.8 gm/dL (3.2-5.2); Albumin/Globulin Ratio 0.9 (1.0-2.3); Alkaline Phosphatase 65 U/L (39-117); Bilirubin,Direct < 0.2 mg/dL (<0.3); Bilirubin,Total 0.4 mg/dL (0.1-1.0); Blood Urea Nitrogen 13 mg/dL (8-23); Carbon Dioxide 25 mmol/L (22-30); Chloride 104 mmol/L (96-108); Glomerular Filtration Rate 90; Glucose 109 mg/dL (70-105); Lactate Dehydrogenase 326 U/L (135-225); Triglycerides 68 mg/dL (<150); Uric Acid 4.1 mg/dL (2.5-8.0)
[2020-01-27] MEDS: POTASSIUM CHLORIDE 20 MEQ TABLET PO PRN (12:18)
--- NOTE | 2020-01-27 12:29 | Internal Med Progress Note ---
SUBJECTIVE Subjective Patient information: Note initiated : 01/27/20 at 12:27 pm Service Date, if different from initiated Date: [] Patient: Christy Atkins a 74 y/o F admitted on 01/22/20 for Hasn't Been Able To Eat/Drink/Get Out Of Bed. Chief Complaint: [] Interval history: History of present illness: Ms. Gianluca Payan is a 74 year old F 74-year-old female presents the ED with generalized weakness decreased appetite nausea vomiting diarrhea cough and fever some mild confusion on top of underlying Alzheimer's patient. History is obtained from the chart and per the chart due to patient's underlying dementia. In the ED she is evaluated found to be hypoxic with a fever. She had elevated procalcitonin and chest x-ray showed bilateral infiltrates. Covid test was positive. 01/22 Patient on 3 to 5 L oxygen. No overnight event or new complaints. Patient with cough. Minimal shortness of breath per patient. 01/23 Patient became quite agitated last night and combative. Given Zyprexa Benadryl with little effect. Finally sleeping this morning. Calm and cooperative when I examined her this morning. 01/24 patient doing well-currently on 4 L oxygen. Continue empiric antibiotic coverage/dexamethasone/remdesivir. White count 4.7. D-dimer 3.94. Continue close monitoring/ 01/25-patient doing well. On day 4 remdesivir/dexamethasone. Wanting to go home. No overnight events.White count 8.7, CRP 5, procalcitonin negative. De- escalate antibiotics Constitutional Vitals: Vital Signs Temp Pulse Resp BP Pulse Ox 97.2 F 90 20 107/44 91 01/27/20 12:22 01/27/20 12:22 01/27/20 12:22 01/27/20 12:22 01/27/20 12:22 Period Temp Pulse Resp BP Sys/Mera Pulse Ox Last 24 Hr 97.2 F-98.1 F 66-90 - 106-134/44-67 90-97 Intake and Output 01/26/20 01/27/20 01/27/20 21:59 05:59 13:59 Intake Total 120 125 50 Output Total 225 Balance -105 125 50 Weight 74.026 kg Intake & Output: Intake & Output 01/26/20 01/27/20 01/27/20 21:59 05:59 13:59 Intake Total 120 125 50 Output Total 225 Balance -105 125 50 Weight 74.026 kg Intake: Oral 120 125 50 Output: Void Amount 225 Other: Meal Breakfast Percent of Meal Consumed Refused Nourishment/Supplement name Boost Breeze Urine Appearance Clear Urine Color Bright Yellow Urine Odor Normal Stool Size Moderate Stool Color Brown Stool Consistency Liquid Loose # Voids 1 Exam: Patient doing well Nonlabored breathing on 2 L oxygen Resting comfortably OBJ DATA Labs CBC & Chem 7: 01/27/20 07:13 01/27/20 07:14 Labs: Abnormal Lab Results 01/27/20 01/27/20 01/27/20 07:14 07:14 07:14 RBC Hgb Hct Neut % (Auto) Lymph % (Auto) Lymph # (Auto) D-Dimer 2.76 H Chloride Carbon Dioxide Glucose 109 H Calcium 8.0 L AST Lactate Dehydrogenase 326 H Total Protein 5.8 L Albumin 2.8 L Albumin/Globulin Ratio 0.9 L Procalcitonin 0.10 H Urine Protein Urine RBC Urine WBC Ur Squamous Epith Cells Urine Mucus 01/27/20 01/26/20 01/26/20 07:13 09:25 08:36 RBC 3.96 L Hgb 11.8 L Hct 34.6 L Neut % (Auto) 81.3 H Lymph % (Auto) 13.6 L Lymph # (Auto) 1.30 L D-Dimer 3.38 H Chloride Carbon Dioxide Glucose Calcium AST Lactate Dehydrogenase Total Protein Albumin Albumin/Globulin Ratio Procalcitonin Urine Protein 30 A Urine RBC 19 H Urine WBC 7 H Ur Squamous Epith Cells 8 H Urine Mucus Few A 01/26/20 01/26/20 01/26/20 07:11 07:11 07:11 RBC Hgb Hct Neut % (Auto) 81.0 H Lymph % (Auto) 13.1 L Lymph # (Auto) 1.14 L D-Dimer Chloride 109 H Carbon Dioxide 21 L Glucose 118 H Calcium 8.0 L AST 49 H Lactate Dehydrogenase 422 H Total Protein Albumin 2.7 L Albumin/Globulin Ratio 0.8 L Procalcitonin 0.15 H Urine Protein Urine RBC Urine WBC Ur Squamous Epith Cells Urine Mucus 01/25/20 05:06 RBC Hgb Hct Neut % (Auto) Lymph % (Auto) Lymph # (Auto) D-Dimer Chloride Carbon Dioxide Glucose 121 H Calcium 8.1 L AST Lactate Dehydrogenase Total Protein Albumin Albumin/Globulin Ratio Procalcitonin Urine Protein Urine RBC Urine WBC Ur Squamous Epith Cells Urine Mucus Meds: Medications Acetaminophen (Tylenol) 650 mg PO Q6HP PRN PRN Reason: PAIN/FEVER > 101 Last Admin: 01/26/20 20:18 Dose: 650 mg Documented by: Albuterol/Ipratropium (Duoneb) 3 ml NEB Q4HP PRN PRN Reason: Shortness Of Breath Albuterol/Ipratropium (Combivent) 2 puff INH QIDP PRN PRN Reason: sob Aspirin (Aspirin) 81 mg PO QDAY [facility] Last Admin: 01/27/20 08:29 Dose: 81 mg Documented by: Dexamethasone (Decadron) 6 mg PO DAILY [facility] Last Admin: 01/27/20 08:30 Dose: 6 mg Documented by: Docusate Sodium (Colace) 100 mg PO BID [facility] Last Admin: 01/27/20 08:31 Dose: Not Given Documented by: Donepezil HCl (Aricept) 10 mg PO QDAY [facility] Last Admin: 01/27/20 08:29 Dose: 10 mg Documented by: Enoxaparin Sodium (Lovenox) 40 mg SQ DAILY [facility] Last Admin: 01/27/20 08:30 Dose: Not Given Documented by: Potassium Chloride 40 meq/ (Dextrose) 520 mls @ 130 mls/hr IV UD PRN PRN Reason: Potassium < 3 Magnesium Sulfate (Magnesium Sulfate) 2 gm in 50 mls @ 50 mls/hr IV UD PRN PRN Reason: Magnesium </= 1.6 Melatonin (Melatonin 3mg Tablet) 3 mg PO [facility] Last Admin: 01/26/20 20:19 Dose: 3 mg Documented by: Memantine (Namenda) 5 mg PO BID [facility] Last Admin: 01/27/20 08:29 Dose: 5 mg Documented by: Ondansetron HCl (Zofran) 4 mg IV Q4HP PRN PRN Reason: Nausea And Vomiting Polyethylene Glycol (Miralax) 17 gm PO DAILYP PRN PRN Reason: Constipation Potassium Chloride (Kdur) 40 meq PO UD PRN PRN Reason: Potssium is 3-3.5 Last Admin: 01/27/20 12:18 Dose: 40 meq Documented by: Potassium Chloride (Kdur) 40 meq PO UD PRN PRN Reason: Potassium < 3 Quetiapine Fumarate (Seroquel) 25 mg PO HS [facility] Last Admin: 01/26/20 20:21 Dose: 25 mg Documented by: Ari (Senokot) 2 tab PO DAILYP PRN PRN Reason: Constipation Zinc Sulfate (Zinc) 50 mg PO DAILY [facility] Last Admin: 01/27/20 08:30 Dose: 50 mg Documented by: A/P Narrative A/P Narrative: * *COVID pneumonia w/likely superimposed bacterial pneumonia: Weaning oxygen as tolerated now down to 1 L. On remdesivir/dexamethasone. Will likely discharge in 24 hours on home oxygen * *Acute hypoxic respiratory failure: Secondary to Covid pneumonia. On 1-2 L oxygen * *Sepsis: 2/2 above-clinically resolved * *Encephalopathy superimposed on underlying Alzheimer's dementia: On memantine/donepezil/quetiapine. At baseline, follows with Dr. Waddell - Agitation last night * *Hypokalemia: Resolved with replacement Plan: -Remdesivir/Dexamethasone day 5 -O2 support, wean as tolerated -qhs seroquel -pt/ot -ppx: lovenox -Possible DC in 24 hours Time Spent With Patient Time: Total time spent is greater than 50% in coordination of care (as documented) at patient's floor/unit and/or counseling patient:
[2020-01-27] MEDS: QUEtiapine 25 MG TABLET PO SCH (20:12)
[2020-01-27] MEDS: MELATONIN 3 MG TABLET PO SCH (20:12)
--- NOTE | 2020-01-28 11:00 | Discharge Summary ---
Discharge Provider Provider Patient information: Note initiated : 01/28/20 at 10:58 am Service Date, if different from initiated Date: [] Patient: Christy Atkins a 74 y/o F admitted on 01/22/20 for Hasn't Been Able To Eat/Drink/Get Out Of Bed. Discharge diagnosis * *COVID pneumonia w/likely superimposed bacterial pneumonia: Clinical improvement noted. discharging on home oxygen. Exercise oximetry prior to discharge. Continue additional 5 days dexamethasone. * *Acute hypoxic respiratory failure: Secondary to Covid pneumonia. On 1-2 L oxygen. RT to qualify for home oxygen * *Sepsis: 2/2 above-clinically resolved * *Encephalopathy superimposed on underlying Alzheimer's dementia: On memantine/donepezil/quetiapine. At baseline, follows with Dr. Waddell - Agitation last night * *Hypokalemia: Resolved with replacement Brief hospital course 74-year-old female presents the ED with generalized weakness decreased appetite nausea vomiting diarrhea cough and fever some mild confusion on top of underlying Alzheimer's patient. History is obtained from the chart and per the chart due to patient's underlying dementia. In the ED she is evaluated found to be hypoxic with a fever. She had elevated procalcitonin and chest x-ray showed bilateral infiltrates. Covid test was positive. 01/22 Patient on 3 to 5 L oxygen. No overnight event or new complaints. Patient with cough. Minimal shortness of breath per patient. 01/23 Patient became quite agitated last night and combative. Given Zyprexa Benadryl with little effect. Finally sleeping this morning. Calm and cooperative when I examined her this morning. 01/24 patient doing well-currently on 4 L oxygen. Continue empiric antibiotic coverage/dexamethasone/remdesivir. White count 4.7. D-dimer 3.94. Continue close monitoring/ 01/25-patient doing well. On day 4 remdesivir/dexamethasone. Wanting to go home. No overnight events.White count 8.7, CRP 5, procalcitonin negative. De- escalate antibiotics 01/26-patient doing a lot better. On 2 L oxygen. More lucid alert and respond to commands. Able to ambulate. Minimal desaturation. Anticipate discharge in 24 hours. Case discussed with patient's daughter on phone. Daughter requesting hospital bed/other medical supplies to facilitate her care. No additional concerns expressed with nursing staff. 01/27-patient discharging today. In stable state. Exercise oximetry prior to discharge to qualify for home oxygen. Continue dexamethasone for additional 5 days. Maintain COVID-19 precautions. Date of admission: 01/22/20 20:51 Discharge date: 01/28/20 Primary care physician: Omer Shepherd M.D., F.A.A.F.P. Consults: 01/22/20 Consult to Physician [CONS] Stat Comment: Consulting Provider: Stu Coyle Reason For Exam: Physician to Consult Discharge Meds Discharge Medications Home Medications aspirin 81 mg tablet,delayed release 81 mg PO QDAY #90 tab 01/05/15 [Rx Confirmed 01/22/20 Last Taken Unknown] donepezil 10 mg tablet 10 mg PO QDAY #60 tab 06/01/18 [Rx Confirmed 01/22/20 Last Taken Unknown] memantine 5 mg tablet 5 mg PO BID 04/08/19 [History Confirmed 01/22/20 Last Taken Unknown] folic acid 1 mg tablet See Rx Instructions .ROUTE .COMPLEX #30 tab 11/12/19 [Rx Confirmed 01/22/20 Last Taken Unknown] dexamethasone 6 mg PO DAILY #5 tab 01/28/20 [Rx Last Taken Unknown] COURSE Hospital Course Hospital course: . Discharge diagnosis: . Time Spent with Patient Time attestation: Total time spent providing and/or coordinating discharge services: EXAM Constitutional Vitals: Temp Pulse Resp BP Pulse Ox 97.5 F 84 20 120/62 92 01/28/20 08:00 01/28/20 08:00 01/28/20 08:00 01/28/20 08:00 01/28/20 08:40 Discharge Data Data Completed and Pending Labs on day of discharge: Labs from last 24 hours 01/28/20 01/28/20 01/28/20 07:34 07:34 07:34 WBC Pending RBC Pending Hgb Pending Hct Pending MCV Pending MCH Pending MCHC Pending RDW Pending Plt Count Pending MPV Pending Neut % (Auto) Pending D-Dimer Sodium Pending Potassium Pending Chloride Pending Carbon Dioxide Pending Anion Gap Pending BUN Pending Creatinine Pending GFR Calculation Pending Glucose Pending Uric Acid Pending Calcium Pending Phosphorus Pending Magnesium Pending Total Bilirubin Pending Direct Bilirubin Pending GGT Pending AST Pending ALT Pending Alkaline Phosphatase Pending Lactate Dehydrogenase Pending Total Protein Pending Albumin Pending Globulin Pending Albumin/Globulin Ratio Pending Triglycerides Pending Procalcitonin Pending 01/28/20 07:34 WBC RBC Hgb Hct MCV MCH MCHC RDW Plt Count MPV Neut % (Auto) D-Dimer 3.01 H Sodium Potassium Chloride Carbon Dioxide Anion Gap BUN Creatinine GFR Calculation Glucose Uric Acid Calcium Phosphorus Magnesium Total Bilirubin Direct Bilirubin GGT AST ALT Alkaline Phosphatase Lactate Dehydrogenase Total Protein Albumin Globulin Albumin/Globulin Ratio Triglycerides Procalcitonin Discharge Plan Patient/Caregiver Discharge Instructions Activity: increase activity as tolerated Diet: Regular Diet Activity Restrictions/Additional Instructions: Maintain COVID-19 precaution RT to perform exercise oximetry to qualify for home oxygen Dexamethasone for 5 days Follow-up PCP in 2 weeks Return to ER if worsening shortness of breath/fever chills mental status change noted Prescriptions: New dexamethasone 4 mg Tablet 6 mg PO DAILY Qty: 5 RF: 0 Continued folic acid 1 mg tablet See Rx Instructions .ROUTE .COMPLEX Qty: 30 RF: 4 aspirin 81 mg tablet,delayed release (DR/EC) 81 mg PO QDAY Qty: 90 RF: 0 donepezil [Aricept] 10 mg tablet 10 mg PO QDAY Qty: 60 RF: 4 memantine [Namenda] 5 mg tablet 5 mg PO BID RF: 0 Other Ambulatory Orders: Hospital Bed (ONCE) Location: None Selected Ordered By: Kyle Reyes Toilet Riser Discharge Order (ONCE) Location: None Selected Ordered By: Kyle Reyes Follow Up Plan Follow up with: Omer Shepherd MD, FAAFP [Primary Care Provider] - Patient Disposition: Home, Self-Care Rehab Potential: Fair I certify that the patient requires SNF services: No Overall status at discharge: patient is progressing back to baseline Discharge Orders: Discharge Order (Routine); Ordered 01/28/20 Ordered By: Kyle Reyes
[2020-01-28] MEDS: ENOXAPARIN 40 MG/0.4 ML SYRINGE SQ SCH (11:19)
[2020-01-28] MEDS: DEXAMETHASONE 4 MG TABLET PO SCH (11:20)
[2020-01-28] MEDS: ZINC SULFATE 50 MG CAPSULE PO SCH (11:20)
[2020-01-28] MEDS: DONEPEZIL 10 MG TABLET PO SCH (11:21)
[2020-01-28] MEDS: DOCUSATE SODIUM 100 MG CAPSULE PO SCH (11:21)
[2020-01-28] MEDS: MEMANTINE 10 MG TABLET PO SCH (11:21)
[2020-01-28] MEDS: ASPIRIN 81 MG TAB.CHEW PO SCH (11:21)
[2020-01-28 13:33] LABS: Basophils # (Auto) 0.02 K/mcL (0.00-0.20); Basophils % (Auto) 0.2 % (0.0-2.0); Eosinophils # (Auto) 0.01 K/mcL (0.00-0.70); Eosinophils % (Auto) 0.1 % (0.0-7.0); Hematocrit 35.5 % (36.0-48.0); Hemoglobin 12.3 g/dL (12.0-15.0); Lymphocytes # (Auto) 1.48 K/mcL (1.50-4.80); Lymphocytes % (Auto) 12.8 % (15.0-49.0); Mean Corpuscular HGB Conc 34.6 g/dL (31.0-36.0); Mean Platelet Volume 9.6 fL (7.4-10.4); Monocytes # (Auto) 0.56 K/mcL (0.10-0.90); Monocytes % (Auto) 4.8 % (1.0-12.0); Neutrophils % (Auto) 82.1 % (38.0-78.0); Platelet Count 459 K/mcL (140-440); RBC 4.08 M/mcL (4.00-5.20); Red Cell Distribution Width 13.2 % (11.5-14.5); WBC 11.6 K/mcL (4.5-11.0)
[2020-01-28 14:07] LABS: ALT/SGPT 14 U/L (<40); AST/SGOT 17 U/L (<32); Albumin 2.9 gm/dL (3.2-5.2); Albumin/Globulin Ratio 0.9 (1.0-2.3); Alkaline Phosphatase 73 U/L (39-117); Bilirubin,Direct < 0.2 mg/dL (<0.3); Bilirubin,Total 0.5 mg/dL (0.1-1.0); Blood Urea Nitrogen 17 mg/dL (8-23); Calcium 8.1 mg/dL (8.6-10.4); Carbon Dioxide 24 mmol/L (22-30); Chloride 103 mmol/L (96-108); Globulin 3.2 gm/dL (2.2-3.7); Glomerular Filtration Rate 90; Glucose 106 mg/dL (70-105); Lactate Dehydrogenase 357 U/L (135-225); Phosphorous 2.7 mg/dL (2.5-4.5); Triglycerides 65 mg/dL (<150); Uric Acid 4.1 mg/dL (2.5-8.0)
== END 2020-01-28 13:30 | disposition home or self-care (01) | DRG 871 ==
LOC: ED 14:23 → ICU 20:51 → MEDSUR 01-23 21:41
PROVIDERS: ADMIT Internal Medicine; ATTEND Internal Medicine